=== PATIENT | female | born 1955 | race Caucasian/White ===

== ENCOUNTER → 2019-08-04 13:02 | Outpatient (CLI) | payer MEDICARE, SELFPAY ==
--- NOTE | ~2019-08-04 | CT_ITS ---
EXAMINATION: CT lumbar spine w con EXAM DATE: 08/04/2019 13:39 INDICATION: Chronic low back pain. TECHNIQUE: Spiral CT of the lumbar spine was performed following injection of 100 mL intravenous Omni paque 350 solution. Axial, coronal and sagittal images were reviewed. The dose-length product (DLP) for this examination was 913.00 mGy-cm. The exposure was tailored according to patient size (auto mA exposure control), and iterative reconstruction (ASIR) was used as additional dose reduction techn ique. Correlation is made to lumbar spine MRI 04/26/2016. FINDINGS: L4-5 interbody and posterior fusion along with laminectomy. No lucency surrounding the scre ws. There is mild to moderate disc disease L2-L3 and L3-4. No spondylolysis. Sacrum is unremarkable. No evidence of epidural fluid collection. Moderate abdominal aortic arterial sclerosis. Paraspinal so ft tissue is unremarkable. The vertebral bodies are aligned in the AP dimension. There are no areas of abnormal enhancement on the post contrast images. Level by level evaluation: T12-L1: There is a minimal diffuse disc bulge. Facet arthropathy: Minimal. Neural foraminal stenosis: No stenosis. Central canal stenosis: No stenosis. L1-L2: There is a mild diffuse disc bulge. Facet arthropathy: Mild. Neural foraminal stenosis: No stenosis. Central canal stenosis: No stenosis. L2-L3: There is a mild diffuse disc bulge. Facet arthropathy: Mild. Neural foraminal stenosis: Mild bilateral. Central canal stenosis: Minimal. L3-L4: There is a mild to moderate diffuse disc bulge. Facet arthropathy: Moderate. Neural foraminal stenosis: Moderate bilateral. Central canal stenosis: Mild to moderate. L4-L5: This level is fused. Facet arthropathy: None. Neural foraminal stenosis: No stenosis. Central canal stenosis: No stenosis. Posterior decompression. L5-S1: There is a mild diffuse disc bulge. Facet arthropathy: Moderate to severe left, moderate right. Neural foraminal stenosis: Mild to moderate bilateral, left more than right. Central canal stenosis: No stenosis. IMPRESSION: 1. Overall moderate lumbar spondylosis. Reviewed, dictated and finalized at location A. TEND ENGINEER
[2019-08-04 13:26] LABS: Blood Urea Nitrogen 19 mg/dL (8-26); Estimated Glomerular Filt Rate > 60
== END ==
PROVIDERS: PCP Physician Assistant; Visit Provider Physician Assistant
DX: M47.816 Spondylosis without myelopathy or radiculopathy, lumbar region (principal)
CPT/HCPCS: 72132; Q9967

== ENCOUNTER 2020-05-27 13:15 | Outpatient (CLI) | payer MEDICARE, SELFPAY ==
--- NOTE | ~2020-05-27 | MM_ITS ---
EXAMINATION: MM diagnostic tan BI w rocky HISTORY: Previous right nipple discharge. Current left nipple discharge. TECHNIQUE: Additional 3-D tomosynthesis images of the breasts were performed and synthetic 2-D images were generated. CAD analysis was submitted and interpreted. COMPARISON: Comparison to multiple prior studies sequentially, with oldest reviewed study dated 11/2014. BREAST PARENCHYMAL COMPOSITION: Breast composed of scattered areas of fibroglandular density FINDINGS: There are no suspicious masses, calcifications or architectural distortion in either breast to suggest malignancy. IMPRESSION: 1. No mammographic evidence for malignancy. Follow-up bilateral breast ultrasound recommended for com plete evaluation of nipple discharge. BI-RADS CATEGORY 0 - INCOMPLETE STUDY, NEED ADDITIONAL IMAGING EVALUATION. Reviewed, dictated and finalized at location A. WINDER IMPRESSION: 1. No mammographic evidence for malignancy. Follow-up bilateral breast ultrasou nd recommended for complete evaluation of nipple discharge. BI-RADS CATEGORY 0 - INCOMPLETE STUDY, NEED ADDITIONAL IMAGING EVALUATION.
--- NOTE | ~2020-05-27 | US_ITS ---
US breast BI complete 05/27/2020 14:56 Indication: Galactorrhea Procedure: High-resolution bilateral breast ultrasound Comparison: Mammogram dated 05/27/2020 Findings: Right breast is composed of normal heterogeneous echotexture without focal solid or cystic mass. In the left breast at 2:00, 3 cm from the nipple, there is an anechoic mass measuring 3 mm with subtle posterior acoustic shadowing. There is antiparallel configuration, likely due to superficial location. Impression: 1: Anechoic mass in the left breast at 2:00, 3 cm from the nipple, most likely a cyst, although there is posterior shadowing. BI-RADS CATEGORY 3-PROBABLY BENIGN FINDING RECOMMENDATION: Six-month follow-up targeted left breast ultrasound recommended. Reviewed, dictated and finalized at location A. SKINNING MACHINE FEEDER Impression: 1: Anechoic mass in the left breast at 2:00, 3 cm from the nipple, most likely a cyst, although there is posterior shadowing. BI-RADS CATEGORY 3-PROBABLY BENIGN FINDING RECOMMENDATION: Six-month follow-up targeted left breast ultrasound recommended .
== END 2020-05-27 13:16 | disposition home or self-care (01) ==
PROVIDERS: PCP Family Medicine; Visit Provider Family Medicine
DX: N64.3 Galactorrhea not associated with childbirth (principal); R92.8 Other abnormal and inconclusive findings on diagnostic imaging of breast
CPT/HCPCS: 76641; 77062; 77066; G0279

== ENCOUNTER 2020-08-30 09:18 | Outpatient (CLI) | payer MEDICARE, SELFPAY ==
--- NOTE | ~2020-08-30 | CT_ITS ---
EXAMINATION: CT lung screening DATE: 08/30/2020 09:45 INDICATION: F17.209 - Nicotine dependence, unspecified, with unspecified nicotine-induced disorders TECHNIQUE: Computed tomography (CT) of the chest was performed without intravenous contrast. Addition al 3D reconstructions utilizing coronal maximum intensity projection (MIP) were performed. Automated exposure control and iterative reconstruction technique were employed. The dose-length product was 18 6.71 mGy-cm. COMPARISON: None FINDINGS: Mild to moderate upper lobe predominant emphysema. 4 x 2 mm subpleural nodule in the right upper lobe . 1 mm left upper lobe nodule. No pleural effusion. Heart size is normal. Atherosclerotic coronary ar mack calcification. Aortic valve calcification. Thoracic aorta is normal in caliber. No pathologicall y enlarged thoracic lymphadenopathy. Diffuse hepatic steatosis. Mild thoracic dextroscoliosis with mi ld to moderate spondylosis. Chronic mild anterior wedging at T7 and T8. IMPRESSION: 1. Lung-RADS category 2: Benign appearance or behavior, <1% chance of malignancy. Continue annual scr eening with noncontrast low-dose chest CT in 12 months. Reviewed, dictated and finalized at location B. IMPRESSION: 1. Lung-RADS category 2: Benign appearance or behavior, <1% chance of malignanc y. Continue annual screening with noncontrast low-dose chest CT in 12 months.
== END 2020-08-30 09:19 | disposition home or self-care (01) ==
LOC: ANHIMG 09:26
PROVIDERS: PCP Family Medicine; Visit Provider Family Medicine
DX: Z12.2 Encounter for screening for malignant neoplasm of respiratory organs (principal); Z87.891 Personal history of nicotine dependence
CPT/HCPCS: 71271

== ENCOUNTER 2020-09-10 18:33 | Emergency (ER) | payer MEDICARE, SELFPAY ==
[2020-09-10] VITALS (10 sets, daily range): BP systolic 118–164; BP diastolic 57–132; PULSE 66–93; RESP 13–25; TEMP 36.1–36.6; O2SAT 96–100
--- NOTE | ~2020-09-10 | XR_ITS ---
EXAMINATION: XR chest 2V EXAM DATE: 09/10/2020 19:06 INDICATION: Left-sided chest pain, shortness of breath, syncope. History of hypertension and COPD. TECHNIQUE: Frontal and lateral projections of the chest obtained and reviewed. Comparison is made to prior examination from 12/12/2010. FINDINGS: There are cholecystectomy clips. The lungs are clear. There are no pleural effusions. T he cardiomediastinal silhouette is within normal limits. There is no pneumothorax suspected. Surgic al changes right acromioclavicular joint. There is no significant interval change. IMPRESSION: No acute cardiopulmonary findings. Reviewed, dictated and finalized at location A.
--- NOTE | 2020-09-10 18:39 | ECG_ITS ---
Measurements Intervals [place] Rate: 89 P: 60 MI: 134 QRS: 75 QRSD: 85 T: 54 QT: 362 QTc: 442 Interpretive Statements SINUS RHYTHM POSSIBLE LEFT ATRIAL ENLARGEMENT DELAYED PRECORDIAL R/S TRANSITION BASELINE WANDER- V3 BORDERLINE ECG Electronically Signed On 09-13-2020 10:27:39 CDT by Roc Humphrey D.O.
[2020-09-10 18:53] LABS: Basophils Percent Auto 0.5 % (0.2-1.2); Eosinophils Absolute Auto 0.1 K/mm3 (0-0.3); Eosinophils Percent Auto 1.3 % (0-4.4); Hemoglobin 13.1 g/dL (12.0-15.0); Immature Granulocyte Absolute 0.02 K/mm3 (0.00-0.031); Immature Granulocyte Percent A 0.3 % (0-0.5); Lymphocytes Absolute Auto 2.06 K/mm3 (0.9-3.2); Lymphocytes Percent Auto 27.5 % (18.3-44.2); Mean Corpuscular HGB Conc 33.6 g/dl (32-36); Mean Corpuscular Hemoglobin 30.3 pg (26-34); Mean Corpuscular Volume 90.1 fl (80-100); Mean Platelet Volume 10.4 fl (7.4-10.4); Monocytes Absolute Auto 0.5 K/mm3 (0.1-0.6); Monocytes Percent Auto 6.1 % (2.6-8.5); Neutrophils Absolute Auto 4.8 K/mm3 (1.3-6.7); Neutrophils Percent Auto 64.3 % (45.5-73.1); Platelet Count Result 236 k/mm3 (150-375); Red Blood Count 4.33 M/mm3 (4.2-5.4); Red Cell Distribution Width 13.1 % (11.5-14.5); White Blood Count 7.5 K/mm3 (4.5-10.0)
[2020-09-10] MEDS: ASPIRIN 81 MG CHEWABLE TABLET 324 MG PO (18:53)
[2020-09-10 19:02] LABS: Prothrombin Time 13.3 Seconds (11.1-14.7)
[2020-09-10 19:04] LABS: Partial Thromboplastin Time 30.7 SECONDS (22.3-36.8)
[2020-09-10 19:05] LABS: Anion Gap 7 mmol/L (8-16); Blood Urea Nitrogen 13 mg/dL (7-17); Calcium 9.1 mg/dL (8.4-10.2); Carbon Dioxide 30 mmol/L (22-30); Chloride 103 mmol/L (98-107); Estimated CRCL calculation 75 ml/min; Estimated Glomerular Filt Rate > 60; Glucose 107 mg/dL (65-105); Potassium 3.7 mmol/L (3.4-5.0); Sodium 140 mmol/L (137-145)
[2020-09-10 19:15] LABS: Troponin I < 0.012 ng/mL (0.000-0.034)
--- NOTE | 2020-09-10 20:53 | ED.CHESTPAIN ---
HPI - Chest Pain General Chief Complaint: Chest Pain Stated Complaint: cp Time Seen by Provider: 09/10/20 19:21 Source: patient Mode of arrival: ambulatory Limitations: no limitations History of Present Illness HPI narrative: Patient presents for evaluation of center chest pain that radiated to the left side beginning yesterday. Patient states it felt like a spasming sensation. Patient states that when she came to emergency department the pain stopped. Patient states he was recently diagnosed with emphysema and pulmonary nodules so her respiratory function is at her baseline. She denies any fever, chills, cough, syncope, abdominal pain, nausea, vomiting, diaphoresis or any other symptoms. Patient denies any speech deficits or neurological deficits or unilateral weakness. Patient denies any symptoms at this time. Patient states she stopped smoking 3 years ago. She reports having anxiety, depression, restless leg syndrome, chronic pain, and thyroid disorder. She denies ever had a heart attack or stroke. She denies close family history of MIs. Related Data Home Medications Medication Instructions Recorded Confirmed Cannabis BYMOUTH 11/26/19 08/04/20 Allergies Allergy/AdvReac Type Severity Reaction Status Date / Time adhesive tape Allergy Intermediate BLISTERS Verified 09/10/20 18:46 FROM SURG TAPE heparin Allergy Unknown rash Verified 09/10/20 18:46 Penicillins Allergy Unknown Rash Verified 09/10/20 18:46 Review of Systems Review of Systems: Narrative: CONSTITUTIONAL: Denies fever, chills, or sweats. EYES: Denies visual changes, redness, or discharge. ENT: Denies rhinorrhea, congestion, sore throat, or otalgia. CARDIOVASCULAR: Reports chest pain now resolved denies palpitations, or edema. RESPIRATORY: Denies cough or dyspnea. GASTROINTESTINAL: Denies abdominal pain, nausea, vomiting, or diarrhea. GENITOURINARY: Denies dysuria or hematuria. SKIN: Denies rash or itching. MUSCULOSKELETAL: Denies back pain, joint pain, or myalgia. NEUROLOGIC: Denies headache, numbness, dizziness, or weakness. PSYCHIATRIC: Denies anxiety or depression. ON LICENSE OF [facility] Past Medical History Medical History (Updated 09/10/20 @ 20:57 by Brennon Delacruz PA-C) Acute bronchitis Carpal tunnel syndrome on both sides Chills (without fever) Chronic anxiety Chronic depression Compression fracture of body of thoracic vertebra (08/30/20) anterior wedging of T7 and T8 on CT of the chest 08/20/2020 Coronary artery calcification seen on CT scan (08/30/20) Edema, peripheral Emphysematous COPD (08/30/20) mild to moderate upper lobe emphysema on CT 08/30/2020 Fatigue Fatty infiltration of liver (08/30/20) fatty liver noted on CT on 08/30/2020 Galactorrhea of left breast Hypersomnia Hypertension Shortness of breath Thyroid disease Tobacco use disorder, continuous Tremor Surgical History Surgical History H/O breast surgery H/O elbow surgery H/O knee surgery H/O neck surgery H/O shoulder surgery right x 2 H/O: hysterectomy History of cholecystectomy Family History Family History Mother Patient's mother is Family history of heart disease in male family member before age 55 Alcoholism Depression Father Family history of Parkinson's disease Family history of heart disease in male family member before age 55 Alcoholism Social History Social History Smoking status: Current every day smoker Tobacco type: e-cigarettes/vaping Alcohol intake: current Substance use: current Exam Narrative: Exam Narrative: GENERAL: Well-appearing, well-nourished, and in no acute distress. HEAD: Normocephalic, atraumatic. EYES: PERRLA and EOMI. ENT: Nares clear, no rhinorrhea or epistaxis. Mucous membranes moist. Oropharynx without tonsillar hypertrophy exudate or other lesions. Bi
[2020-09-10 21:42] LABS: Troponin I < 0.012 ng/mL (0.000-0.034)
== END 2020-09-10 22:15 | disposition home or self-care (01) ==
PROVIDERS: Emergency Provider Emergency Medicine; PCP Family Medicine
DX: R07.89 Other chest pain (principal); G25.81 Restless legs syndrome; E07.9 Disorder of thyroid, unspecified; G89.29 Other chronic pain; J43.9 Emphysema, unspecified; I70.90 Unspecified atherosclerosis; I10 Essential (primary) hypertension; Z87.891 Personal history of nicotine dependence; R94.31 Abnormal electrocardiogram [ECG] [EKG]
CPT/HCPCS: 36415; 71046; 80048; 84484; 85025; 85610; 85730; 93005; 99284; A9270

== ENCOUNTER 2020-09-17 08:00 | Outpatient (CLI) | payer MEDICARE, SELFPAY ==
--- NOTE | 2020-09-17 14:09 | P.PCNPFT_ITS ---
PFT Interpretation This is a pulmonary function test with pre and post-bronchodilator spirometry, plethysmography and diffusing capacity. The test was performed and results interpreted in accordance with the 2019 and 2005 ATS/ERS Task Force guidelines respectively using the Global Lung Function Initiative-2012 reference equations. Patient demonstrated good effort and c ooperation. Reproducibility criteria were met. The quality of the pre bronchodilator spirometry maneuver was Grade A and post bronchodilator spirometry maneuver was Grade A. Findings: Spirometry:The contour of the inspiratory and expiratory flow tracing are normal. The pre bronchodilator FVC is 3.23 L, 106% predicted. The pre bronchodilator FEV1 is 2.23 L, 94% predicted. The FEV1: FVC ratio was 69%. The post bronchodilator FVC is 3.21 L, representing 1% decrease. The post bronchodilator FEV1 is 2.27 L, representing a 2% increase. Plethysmography: The total lung capacity is 4.66 L, 92% predicted. The functional residual capacity is 2.31 L, 80% predicted. The residual volume is 1.29 L, 62% predicted. Diffusing capacity the absolute diffusion capacity is 13.8, 66% predicted. The diffusing capacity corrected for alveolar volume is 3.22, 74% predicted. Impression: The spirometry is normal without evidence of an obstructive abnormality. There is no significant improvement after inhaling a single dose of albuterol. There is an isolated decrease in residual volume of uncertain significance. The absolute diffusing capacity is mildly decreased and normalizes when corrected for alveolar volume. There are no prior studies for comparison PFT Procedure Performed PFT Procedure Performed Spirometry with Pre/Post Bronchodilator Plethysmography (Lung Vol) Diffusing Cap (DLCO)
--- NOTE | 2020-09-17 14:13 | WPDSIXMINUTE ---
Six Minute Walk This is a 6 minutes walk test. The test was performed and interpreted in accordance with the 2014 ERS/ATS task force guidelines. Findings: The patient's resting room air oxygen saturation measured by pulse oximetry was 96% and her heart rate was 79 bpm. Patient ambulated for 229 meters and oxygen saturation remained 94 to 95%. Heart rate at the end of the study was 104 bpm. There are no prior studies for comparison. Six Minute Walk Procedure Procedure Performed Pulmonary Stress Test (6 min walk)
== END 2020-09-17 08:01 | disposition home or self-care (01) ==
PROVIDERS: PCP Family Medicine; Visit Provider Family Medicine
DX: R06.02 Shortness of breath (principal)
CPT/HCPCS: 94060; 94726; 94729

== ENCOUNTER → 2020-09-27 08:09 | Outpatient (CLI) | payer MEDICARE, SELFPAY ==
--- NOTE | ~2020-09-27 | MR_ITS ---
EXAMINATION: MR shoulder LT wo con DATE: 09/27/2020 09:11 INDICATION: Left shoulder pain. TECHNIQUE: Magnetic resonance imaging (MRI) of the left shoulder was performed without intravenous co ntrast. Sequences included axial PD-weighted FS FSE, coronal oblique PD-weighted FS FSE and T2-weight ed FS FSE, and sagittal oblique T2-weighted FS FSE and T1-weighted FSE. COMPARISON: Left shoulder radiographs 08/04/2020 FINDINGS: Coracoacromial arch: The acromion undersurface is curved in morphology (type II). There is moderate acromioclavicular join t osteoarthritis including inferiorly directed osteophytes. There is a physiologic volume of fluid in subacromial/subdeltoid bursa. Rotator cuff: There is moderate supraspinatus tendinopathy and mild infraspinatus tendinopathy. Teres minor tendon is normal. Subscapularis tendon is normal. There is no asymmetric fatty atrophy of the rotator cuff m uscle bellies. Biceps tendon and glenoid labrum: Biceps tendon is in bicipital groove. Intra-articular biceps tendon is normal. The glenoid labrum is intact. Fluid: There is no glenohumeral joint effusion. Bones/cartilage: Humeral head cartilage is normal. Glenoid cartilage is normal. IMPRESSION: 1. Moderate rotator cuff tendinopathy. No tear. 2. Moderate acromioclavicular joint osteoarthritis. Reviewed, dictated and finalized at location A.
== END ==
PROVIDERS: Visit Provider Orthopaedic Surgery
DX: M25.512 Pain in left shoulder (principal); M75.82 Other shoulder lesions, left shoulder; M19.012 Primary osteoarthritis, left shoulder
CPT/HCPCS: 73221

== ENCOUNTER 2020-10-06 09:16 | Outpatient (CLI) | payer MEDICARE, SELFPAY ==
--- NOTE | ~2020-10-06 | DEXA_ITS ---
Bone Density Report Name: Padmini Mendiola Age: 65 Sex: Female Ethnicity: White Date of : 1955 Indication: postmenopausal; hysterectomy; Referring Provider: Rishi Cuevas Study: Bone densitometry was performed. Exam Date: October 06, 2020 Accession number: [id number] Bone Density: Region BMD T-score Z-score Classification AP Spine (L1, L2) 1.102 1.1 2.8 Normal Femoral Neck (Left) 0.774 -0.7 0.8 Normal Total Hip (Left) 0.952 0.1 1.3 Normal Total Hip Bilateral Avg 0.924 -0.2 1.1 Normal Femoral Neck (Right) 0.765 -0.8 0.8 Normal Total Hip (Right) 0.895 -0.4 0.8 Normal World Health Organization criteria for BMD impression classify patients as: Normal (T-score at or above -1.0), Osteopenia (T-score between -1.0 and -2.5), or Osteoporosis (T-score at or below -2.5). 10-year Fracture Risk: FRAX not reported because: All T-scores for Spine Total, Hip Total, Femoral Neck at or above -1.0 Previous Exams: Region Exam Age BMD T-score BMD Change BMD Change Date g/cm2 vs Baseline vs Previous Total Hip(Left) 10/06/2020 65 0.952 0.1 -0.036(-3.6%)# -0.036(-3.6%)# 04/28/2008 52 0.987 0.4 Total Hip(Right) 10/06/2020 65 0.895 -0.4 -0.034(-3.7%)# -0.034(-3.7%)# 04/28/2008 52 0.930 -0.1 *Denotes significance at 95% confidence level, LSC for Total Hip = 0.027 g/cm2 Clinical Information Provided by Patient: Has 3 or more alcoholic drinks per day Has the following medical conditions: Hysterectomy Patient maximum height was 64 Menopause Age: 32 No regular weight bearing exercise Drinks caffeinated beverages Onset of menses at age 13 Number of children 2 Impression: The patient has normal bone mass. The patient has risk factors, including: excessive alcohol use. No significant bone loss was observed. Discussion: BONE DENSITY IS ABOVE THE MINIMUM DESIRABLE LEVEL AT ALL SKELETAL SITES TESTED. This patient?s bone mineral density is above the minimum desirable level (T-score -1.0 or better) at all sites measured. The patient should follow a healthful lifestyle (good nutrition with adequate calcium and vitamin D, and appropriate weight-bearing exercise). Follow-Up: Consider repeating this study in 5 years or sooner if there is some new clinical indication. Reported by: [facility] on 10/06/2020 9:46:00 AM. Reviewed, dictated and finalized at location AAnnette RODRIGES
== END 2020-10-06 09:17 | disposition home or self-care (01) ==
LOC: ANHIMG 09:20
PROVIDERS: PCP Family Medicine; Visit Provider Student in an Organized Health Care Education/Training Program
DX: M81.0 Age-related osteoporosis without current pathological fracture (principal); Z78.0 Asymptomatic menopausal state
CPT/HCPCS: 77080

== ENCOUNTER 2021-04-11 15:09 | Outpatient (CLI) | payer MEDICARE, SELFPAY ==
--- NOTE | ~2021-04-11 | MR_ITS ---
EXAMINATION: MR cervical spine wo con DATE: 04/11/2021 16:36 INDICATION: Neck pain. TECHNIQUE: Magnetic resonance imaging (MRI) of the cervical spine was performed without intravenous c ontrast. Sequences included sagittal T2-weighted FSE, sagittal T2-weighted FS FSE, sagittal T1-weight ed FSE, axial MERGE, and axial T2-weighted FSE. COMPARISON: Cervical spine MRI 07/09/2019 FINDINGS: There is 11 degrees levoscoliosis of cervicothoracic spine. Vertebral body heights are norm al. There is mildly decreased disc height at C5-C6 and C6-C7. The spinal cord signal intensity is nor mal. The following disc levels are specifically discussed: C2-C3: The disc does not extend beyond the endplate margin. There is mild right uncovertebral joint o steoarthritis. There is severe right and mild left facet joint osteoarthritis. There is mild right ne ural foraminal stenosis. There is no central canal stenosis. C3-C4: The disc does not extend beyond the endplate margin. There is mild left uncovertebral joint os teoarthritis. There is severe right facet joint osteoarthritis. There is ankylosis of left facet join t with severe hypertrophy. There is mild right and moderate left neural foraminal stenosis. There is no central canal stenosis. C4-C5: The disc does not extend beyond the endplate margin. There is no uncovertebral joint osteoarth ritis. There is severe right and mild left facet joint osteoarthritis. There is mild right neural for aminal stenosis. There is no central canal stenosis. C5-C6: The disc is bulging. There is mild bilateral uncovertebral joint osteoarthritis. There is mode rate bilateral facet joint osteoarthritis. There is mild bilateral neural foraminal stenosis. There i s mild central canal stenosis. C6-C7: The disc is bulging. There is severe bilateral uncovertebral joint osteoarthritis. There is se sheela right and mild left facet joint osteoarthritis. There is mild right and moderate left neural for aminal stenosis. There is mild central canal stenosis. C7-T1: The disc does not extend beyond the endplate margin. There is no uncovertebral joint osteoarth ritis. There is severe bilateral facet joint osteoarthritis. There is mild right neural foraminal luz marina nosis. There is no central canal stenosis. IMPRESSION: 1. Moderate cervical spondylosis, stable from 07/09/2019. Reviewed, dictated and finalized at location A.
--- NOTE | ~2021-04-11 | MR_ITS ---
EXAMINATION: MR brain/brain stem wo con DATE: 04/11/2021 16:36 INDICATION: Headache, unspecified. TECHNIQUE: Magnetic resonance imaging (MRI) of the brain and brainstem was performed without intraven ous contrast. Sequences included sagittal and axial T1-weighted FSE, axial diffusion-weighted FS EPI, axial T2*-weighted GRE, axial T2-weighted FLAIR Propeller, and axial T2-weighted Propeller. Apparent diffusion coefficient (ADC) maps were created. COMPARISON: Brain MRI 07/09/2019 FINDINGS: There are scattered areas of nonspecific increased T2-weighted signal intensity in the cere bral and cerebellar white matter and yue. There is no intracranial hemorrhage, acute infarction, or abnormal intracranial mass lesion. The ventricles are normal in size. The paranasal sinuses are clear . The orbits are normal. The mastoid air cells are normal. IMPRESSION: 1. Stable moderate nonspecific cerebral and cerebellar white matter disease and pontine disease, whic h likely represents chronic small vessel ischemic disease. Reviewed, dictated and finalized at location A. IMPRESSION: 1. Stable moderate nonspecific cerebral and cerebellar white matter disease and pontine disease, which likely represents chronic small vessel ischemic disease .
== END 2021-04-11 15:10 | disposition home or self-care (01) ==
PROVIDERS: PCP Family Medicine; Visit Provider Family Medicine
DX: M54.2 Cervicalgia (principal); R51.9 Headache, unspecified; H53.9 Unspecified visual disturbance; M47.812 Spondylosis without myelopathy or radiculopathy, cervical region; R90.82 White matter disease, unspecified
CPT/HCPCS: 70551; 72141

== ENCOUNTER → 2021-06-22 07:37 | Outpatient (CLI) | payer MEDICARE, SELFPAY ==
[2021-06-23 14:36] LABS: SARS-CoV-2 RNA PCR Negative
== END ==
PROVIDERS: PCP Family Medicine; Visit Provider Family Medicine
DX: Z20.822 Contact with and (suspected) exposure to COVID-19 (principal)
CPT/HCPCS: C9803; U0003; U0005

== ENCOUNTER 2021-08-15 13:15 | Outpatient (CLI) | payer MEDICARE, SELFPAY ==
--- NOTE | ~2021-08-15 | MMUS_ITS ---
EXAMINATION: MM diagnostic tan BI w rocky, US breast LT limited HISTORY: Overdue follow-up for probably benign left breast mass TECHNIQUE: Craniocaudal, mediolateral, and mediolateral oblique 3-D tomosynthesis images of the breas ts were performed and synthetic 2-D images were generated. CAD analysis was submitted and interpreted . High resolution limited left breast ultrasound was performed. COMPARISON: 05/27/2020, 07/01/2019, 09/17/2018, 08/01/2017 BREAST PARENCHYMAL COMPOSITION: There are scattered areas of fibroglandular density. FINDINGS: MAMMOGRAPHIC FINDINGS: There is no evidence of suspicious mass, calcification, or architectural distortion in either maligna ncy. There has been no suspicious interval change. ULTRASOUND: The previously described sonographically detected left breast mass is no longer identified. IMPRESSION: 1. No mammographic or sonographic evidence of malignancy. 2. Recommend routine screening mammography in one year. BI-RADS Category 1: Negative Reviewed, dictated and finalized at location A. KILN FEEDER IMPRESSION: 1. No mammographic or sonographic evidence of malignancy. 2. Recommend routine screening mammography in one year. BI-RADS Category 1: Negative
== END 2021-08-15 13:16 | disposition home or self-care (01) ==
LOC: ANHIMG 13:20
PROVIDERS: PCP Family Medicine; Visit Provider Obstetrics & Gynecology
DX: R92.8 Other abnormal and inconclusive findings on diagnostic imaging of breast (principal)
CPT/HCPCS: 76642; 77062; 77066; G0279

== ENCOUNTER 2022-05-18 10:25 | Outpatient (CLI) | payer MEDICARE, SELFPAY ==
--- NOTE | ~2022-05-18 | MR_ITS ---
EXAMINATION: MR lumbar spine wo con DATE: 05/18/2022 10:57 INDICATION: Lumbosacral radiculopathy. TECHNIQUE: Magnetic resonance imaging (MRI) of the lumbar spine was performed without intravenous con trast. COMPARISON: Lumbar spine MRI 04/26/2016 FINDINGS: There is 3 degrees dextrocurvature of lumbar spine. There are changes of anterior and poste rior fusion procedures at L4-L5 with interbody devices and pedicle screws. Vertebral body heights are normal. There is mildly decreased disc height at L2-L3 and L3-L4. The distal spinal cord signal inte nsity is normal. The conus medullaris is at L1. There is a 1.6 cm cyst in left kidney. The following disc levels are specifically discussed: L1-L2: The disc does not extend beyond the endplate margin. There is mild right and moderate left fac et joint osteoarthritis. There is no neural foraminal stenosis. There is no central canal stenosis. L2-L3: The disc is bulging. There is mild right and moderate left facet joint osteoarthritis. There i s mild bilateral neural foraminal stenosis. There is mild central canal stenosis. L3-L4: The disc is bulging. There is severe bilateral facet joint osteoarthritis. There is moderate b ilateral neural foraminal stenosis. There is mild central canal stenosis. L4-L5: There is no facet joint hypertrophy. There is no neural foraminal stenosis. There is no centra l canal stenosis. There is posterior decompression. L5-S1: The disc is bulging. There is severe bilateral facet joint osteoarthritis. There is mild bilat eral neural foraminal stenosis. There is mild central canal stenosis. IMPRESSION: 1. Moderate lumbar spondylosis with slight interval worsening at L3-L4. 2. Anterior and posterior fusion procedures at L4-L5. Reviewed, dictated and finalized at location A. BAKER
== END 2022-05-18 10:26 ==
LOC: MICIMG 10:28
PROVIDERS: PCP Family Medicine
DX: M54.17 Radiculopathy, lumbosacral region (principal); M43.06 Spondylolysis, lumbar region; Z98.1 Arthrodesis status
CPT/HCPCS: 72148

== ENCOUNTER 2022-06-30 12:49 | Outpatient (CLI) | payer MEDICARE, SELFPAY ==
--- NOTE | ~2022-06-30 | XR_ITS ---
XR hand RT min 3V DATE: 06/30/2022 13:01 INDICATION: Right hand pain TECHNIQUE: 3 views COMPARISON: None FINDINGS: There is osteoarthritis involving multiple joints including particularly the first carpomet acarpal joint, interphalangeal joint of the first digit and distal interphalangeal joint of the third digit. Lesser osteoarthritic changes are noted at the remaining interphalangeal joints. There is los s of joint space is most metacarpophalangeal joints as well. Benign approximately 4 mm cyst of navicular bone. No fracture or dislocation, periosteal reaction or bone destruction or erosive change is noted. No ch ondrocalcinosis. IMPRESSION: Polyarticular osteoarthritis Reviewed, dictated and finalized at location A. ROOM PLASTIC CARD GRADER
== END 2022-06-30 12:50 ==
LOC: MICIMG 12:50
PROVIDERS: PCP Family Medicine; Visit Provider Family Medicine
DX: M19.041 Primary osteoarthritis, right hand (principal)
CPT/HCPCS: 73130

== ENCOUNTER 2022-07-20 13:46 | Outpatient (CLI) | payer MEDICARE, SELFPAY ==
--- NOTE | ~2022-07-20 | US_ITS ---
EXAMINATION: US art doppler w press LE BI DATE: 07/20/2022 15:02 INDICATION: Peripheral vascular disease TECHNIQUE: Segmental pressures and plethysmographic and Doppler waveforms of the brachial and lower e xtremity arteries were obtained. COMPARISON: None. FINDINGS: Right and left brachial artery pressures of 129 mm Hg and 133 mm Hg, respectively, are concordant (no rmal difference <= 30 mmHg). The right and left high-thigh pressure indices are 0.99 and 0.86, respec tively (normal > 1.2). The right ankle-brachial index (ESTELITA) is 0.94 (normal >= 0.9-1). The right great toe-brachial index (T BI) is 0.56 (normal >= 0.6-0.8). The right lower extremity segmental pressure gradients are normal (n ormal gradients <= 20-30 mmHg between adjacent levels on the same leg or the same levels on the two l egs). Arterial waveforms are biphasic with brisk systolic upstrokes at the right common femoral, supe rficial femoral, popliteal, posterior tibial and dorsalis pedis arteries. The left ESTELITA is 0.89. The left TBI is 0.60. The left lower extremity segmental pressure gradients are normal. Arterial waveforms are biphasic with brisk systolic upstrokes at the left common femoral, gardner perficial femoral, popliteal, posterior tibial and dorsalis pedis arteries. IMPRESSION: 1. Arterial occlusive disease to the bilateral lower limbs with borderline to mildly decreased bilate ral ABIs and TBIs Reviewed, dictated and finalized at location A. TENANCE SPECIALIST IMPRESSION: 1. Arterial occlusive disease to the bilateral lower limbs with borderline to m ildly decreased bilateral ABIs and TBIs
== END 2022-07-20 13:47 | disposition home or self-care (01) ==
PROVIDERS: PCP Family Medicine; Visit Provider Family Medicine
DX: I73.9 Peripheral vascular disease, unspecified (principal); R23.0 Cyanosis
CPT/HCPCS: 93923

== ENCOUNTER 2022-07-26 08:14 | Outpatient (CLI) | payer MEDICARE, SELFPAY ==
--- NOTE | ~2022-07-26 | US_ITS ---
EXAMINATION: US art doppler w press UE BI DATE: 07/26/2022 10:25 INDICATION: Peripheral arterial disease. Cyanosis of right thumb. TECHNIQUE: Segmental pressures and plethysmographic and Doppler waveforms of the upper extremity omar errol were obtained. COMPARISON: None. FINDINGS: Right and left brachial artery pressures of 147 mm Hg and 154 mm Hg, respectively, are concordant (no rmal difference <= 30 mmHg). The right finger:brachial systolic pressure ratio is 0.77 (normal > 0.8) . The arterial pressure index is 1.10 in right wrist. Arterial Doppler waveforms demonstrate normal u pstroke (normal upstroke < 0.2 s). The left finger:brachial systolic pressure ratio is 0.86. The arterial pressure index is 0.99 in left wrist. Arterial Doppler waveforms demonstrate normal upstroke. IMPRESSION: 1. Mildly decreased right finger:brachial systolic pressure ratio, consistent with arterial occlusive disease. Reviewed, dictated and finalized at location A. ANICAL PROJECT ENGINEER IMPRESSION: 1. Mildly decreased right finger:brachial systolic pressure ratio, consistent w ith arterial occlusive disease.
== END 2022-07-26 08:15 | disposition home or self-care (01) ==
PROVIDERS: PCP Family Medicine; Visit Provider Family Medicine
DX: R23.0 Cyanosis (principal); I73.9 Peripheral vascular disease, unspecified
CPT/HCPCS: 93923

== ENCOUNTER 2023-01-25 20:02 | Emergency (ER) | payer MEDICARE, SELFPAY ==
[2023-01-25] VITALS (7 sets, daily range): BP systolic 103–152; BP diastolic 59–76; PULSE 79–92; RESP 15–26; TEMP 36.4; O2SAT 91–98
--- NOTE | ~2023-01-25 | XR_ITS ---
EXAMINATION: XR chest 2V Exam Date/Time: 01/25/2023 20:35 CDT HISTORY: chest pain Comparison: 09/10/2020. RESULT: Lines, tubes, and devices: Cholecystectomy clips. Lungs and pleura: Mild diffuse reticular opacities. No focal consolidation, pneumothorax, or effusio n. Cardiomediastinal silhouette: Stable. Other: No acute osseous or upper abdominal finding. IMPRESSION: Mild interstitial edema. Reviewed, dictated and finalized at location K. IMPRESSION: Mild interstitial edema.
--- NOTE | 2023-01-25 20:03 | ECG_ITS ---
Measurements Intervals [place] Rate: 84 P: 10 AK: 145 QRS: 85 QRSD: 101 T: 13 QT: 377 QTc: 446 Interpretive Statements SINUS RHYTHM POOR R WAVE PROGRESSION COMPARED TO ECG 09/10/2020 18:40:47 NO SIGNIFICANT CHANGES Electronically Signed On 01-26-2023 8:54:10 CDT by Zully Iraheta M.D.
[2023-01-25 20:19] LABS: Basophils Absolute Auto 0.1 K/mm3 (0.0-0.1); Basophils Percent Auto 1.2 % (0.2-1.2); Eosinophils Absolute Auto 0.2 K/mm3 (0-0.3); Eosinophils Percent Auto 2.9 % (0-4.4); Hematocrit 43.2 % (37.0-47.0); Hemoglobin 14.4 g/dL (12.0-15.0); Immature Granulocyte Absolute 0.08 K/mm3 (0.00-0.031); Immature Granulocyte Percent A 1.1 % (0-0.5); Lymphocytes Absolute Auto 2.26 K/mm3 (0.9-3.2); Lymphocytes Percent Auto 29.9 % (18.3-44.2); Mean Corpuscular HGB Conc 33.3 g/dl (32-36); Mean Corpuscular Hemoglobin 31.1 pg (26-34); Mean Corpuscular Volume 93.3 fl (80-100); Mean Platelet Volume 10.4 fl (7.4-10.4); Monocytes Absolute Auto 0.7 K/mm3 (0.1-0.6); Monocytes Percent Auto 8.9 % (2.6-8.5); Neutrophils Absolute Auto 4.2 K/mm3 (1.3-6.7); Platelet Count Result 242 k/mm3 (150-375); Red Blood Count 4.63 M/mm3 (4.2-5.4); Red Cell Distribution Width 12.2 % (11.5-14.5); White Blood Count 7.6 K/mm3 (4.5-10.0)
[2023-01-25 20:30] LABS: Alanine Aminotransferase 61 U/L (6-35); Albumin Level 4.6 g/dL (3.5-5.1); Alkaline Phosphatase 61 U/L (38-126); Anion Gap 8 mmol/L (8-16); Aspartate Amino Transferase 45 U/L (14-36); Bilirubin,Total 0.3 mg/dL (0.2-1.3); Blood Urea Nitrogen 14 mg/dL (7-17); Calcium 9.3 mg/dL (8.4-10.2); Carbon Dioxide 26 mmol/L (22-30); Chloride 100 mmol/L (98-107); Estimated Glomerular Filt Rate > 60; Glucose 101 mg/dL (65-110); INR 0.9; Lipase 211 U/L (23-300); Potassium 4.2 mmol/L (3.4-5.0); Prothrombin Time 12.9 Seconds (11.1-14.7); Sodium 134 mmol/L (137-145)
[2023-01-25 20:31] LABS: Partial Thromboplastin Time 31.2 SECONDS (22.3-36.8)
[2023-01-25 20:41] LABS: Troponin I < 0.012 ng/mL (0.000-0.034)
--- NOTE | 2023-01-25 22:34 | ED.BACK ---
HPI - Back Pain/Injury General Chief Complaint: Chest Pain Stated Complaint: SOB-chest pain Time Seen by Provider: 01/25/23 22:07 History of Present Illness HPI Narrative: Patient is a 67-year-old female with a history of hypertension, hypothyroidism, anxiety, chronic pain presenting with upper back pain. Patient states that for the last 3 days she has had left-sided neck pain that radiates just above her left shoulder blade. States that she has seen a chiropractor as well as her PCP. States that her PCP prescribed pain medications which has not really helped much. States that she would just like an injection to help with the pain. She denies chest pain. States that she has been a bit short of breath and seems to retaining water but then she tells me that she has not been compliant with her Lasix for some time now. She denies numbness or weakness, lightheadedness, abdominal pain, nausea or vomiting, leg swelling. Related Data Allergies Allergy/AdvReac Type Severity Reaction Status Date / Time adhesive tape Allergy Intermediate BLISTERS Verified 01/09/23 11:26 FROM SURG TAPE heparin Allergy Unknown rash Verified 01/09/23 11:26 Penicillins Allergy Unknown Rash Verified 01/09/23 11:26 Review of Systems Review of Systems: All systems reviewed & are unremarkable except as noted in HPI and below PMFSH Past Medical History Medical History Acute bronchitis ADHD (attention deficit hyperactivity disorder), inattentive type Arthritis of carpometacarpal (CMC) joint of right thumb At high risk for falls (~06/2021) BMI 30.0-30.9,adult BMI 31.0-31.9,adult BMI 32.0-32.9,adult BMI 33.0-33.9,adult Carpal tunnel syndrome on both sides Cellulitis Chigger bites (~10/12/20) Chills (without fever) Chronic anxiety Chronic depression Chronic thoracic back pain Claudication of both lower extremities (~07/13/22) Colon cancer screening Compression fracture of body of thoracic vertebra (08/30/20) anterior wedging of T7 and T8 on CT of the chest 08/20/2020 Contact dermatitis and eczema due to plant Coronary artery calcification seen on CT scan (08/30/20) COVID-19 (06/20/21) PCR test was negative but home test was positive 06/22/2021 COVID-19 long hauler manifesting chronic fatigue (~06/2021) Degenerative arthritis of knee, bilateral Dermatitis Diarrhea Edema, peripheral 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 Galactorrhea of left breast Headache, worsening (~04/11/21) MRI of the brain 04/11/2021 with chronic changes. MRI of the cervical spine with chronic moderate degenerative changes. MRI of the brain and C-spine on 12/21/2022 with chronic nonspecific changes of the brain and moderate spondylosis with moderate to severe spinal stenosis at C6-C7 with moderate to severe left neural foraminal stenosis at C6-C7. Herpes zoster dermatitis (09/25/20) recurrent zoster left T7 dermatome Hypersomnia Hypertension Obesity (BMI 30.0-34.9) Pain in right hand (~06/08/22) pain in right thumb with shoveling Approximate 06/08/2022. Polyarticular arthritis right hand on x-ray 06/30/2022. EMG and nerve conduction study upper extremities 07/31/2022 with chronic right C5-C6 radiculopathy and bilateral carpal tunnel syndrome. Peripheral arterial disease (~07/20/22) arterial Doppler study of The lower extremities on 07/20/2022 revealed borderline to mild occlusive arterial disease in the lower extremities with ESTELITA 0.94 and TBI 0.56 in the right lower extremity and ESTELITA of 0.89 and TBI 0.6 in the left lower extremity. arterial Doppler of the upper extremities 07/26/2022 reveals slightly decreased flow in the right hand with ind
[2023-01-25 23:10] LABS: Troponin I < 0.012 ng/mL (0.000-0.034)
[2023-01-25] MEDS: HYDROmorphone HCL INJ (*CRX) 1 MG/ML SYR 0.5 MG IV PUSH (23:19)
[2023-01-25] MEDS: KETOROLAC 30 MG/ML VIAL (*BKC) IV PUSH (23:21)
[2023-01-25] MEDS: SODIUM CHLORIDE 0.9% IV 1,000 ML 999 ML IV CONT (23:22)
[2023-01-25] MEDS: FUROSEMIDE INJ 40 MG/4 ML VIAL 20 MG IV PUSH (23:24)
[2023-01-25] MEDS: LORazepam INJ (*CRX) 2 MG/ML VIAL 1 MG IV PUSH (23:31)
[2023-01-26 00:17] VITALS: O2SAT 97
[2023-01-26 00:38] VITALS: PULSE 79; RESP 15; O2SAT 95
[2023-01-26 01:16] VITALS: BP 133/68; PULSE 82; RESP 15; O2SAT 93
[2023-01-26 02:49] LABS: Troponin I < 0.012 ng/mL (0.000-0.034)
[2023-01-26 03:35] VITALS: BP 106/54; PULSE 86; RESP 15; O2SAT 98
== END 2023-01-26 05:13 | disposition home or self-care (01) ==
PROVIDERS: Emergency Provider Emergency Medicine; PCP Family Medicine
DX: M54.6 Pain in thoracic spine (principal); M62.830 Muscle spasm of back; R06.02 Shortness of breath; T50.1X6A Underdosing of loop [high-ceiling] diuretics, initial encounter; J43.9 Emphysema, unspecified; I10 Essential (primary) hypertension; I73.9 Peripheral vascular disease, unspecified; E03.9 Hypothyroidism, unspecified; G93.32 Myalgic encephalomyelitis/chronic fatigue syndrome; U09.9 Post COVID-19 condition, unspecified; G89.29 Other chronic pain; G62.9 Polyneuropathy, unspecified; M18.9 Osteoarthritis of first carpometacarpal joint, unspecified; M17.0 Bilateral primary osteoarthritis of knee; F90.0 Attention-deficit hyperactivity disorder, predominantly inattentive type; F32.A Depression, unspecified; F41.9 Anxiety disorder, unspecified; Z87.891 Personal history of nicotine dependence; Z90.710 Acquired absence of both cervix and uterus; Z90.49 Acquired absence of other specified parts of digestive tract; R94.31 Abnormal electrocardiogram [ECG] [EKG]; J81.1 Chronic pulmonary edema
CPT/HCPCS: 36415; 71046; 80053; 83690; 84484; 85025; 85610; 85730; 93005; 96361; 96374; 96375; 99284; J1170; J1885; J1940; J2060; J7030

== ENCOUNTER 2023-02-15 10:44 | Outpatient (CLI) | payer MEDICARE, SELFPAY ==
--- NOTE | ~2023-02-15 | US_ITS ---
EXAMINATION: US carotid duplex BI DATE: 02/15/2023 11:55 INDICATION: Unspecified visual disturbance TECHNIQUE: Grayscale, color Doppler, and pulsed Doppler images of the cervical carotid arteries were obtained. The degree of vessel stenosis is placed in one of the following categories: normal, <50%, 5 0-69%, >=70% but less than near-occlusion, near-occlusion, or total occlusion. Note that percent sten osis relative to normal distal artery lumen diameter is indirectly measured from velocity measurement s as described by Keith, et al. Radiology 2003; 229:340-346. COMPARISON: None. FINDINGS: RIGHT: The right common carotid artery (CCA) peak systolic velocity (PSV) is 76 cm/s. The right internal car otid artery (ICA) PSV is 105 cm/s. The right ICA end-diastolic velocity (EDV) is 26 cm/s. The right I CA/CCA PSV ratio is 1.4. Grayscale and color Doppler images yield an estimate of <50% diameter reduct ion from plaque in the ICA. The external carotid artery (ECA) PSV is 84 cm/s. There is antegrade flow in the right vertebral artery. LEFT: The left CCA PSV is 66 cm/s. The left ICA PSV is 64 cm/s. The left ICA EDV is 15 cm/s. The left ICA/C CA PSV ratio is 1.0. Grayscale and color Doppler images yield an estimate of <50% diameter reduction from plaque in the ICA. The ECA PSV is 70 cm/s. There is antegrade flow in the left vertebral artery. IMPRESSION: 1. <50% stenosis in the right internal carotid artery. 2. <50% stenosis in the left internal carotid artery. Reviewed, dictated and finalized at location A.
== END 2023-02-15 10:45 | disposition home or self-care (01) ==
PROVIDERS: PCP Family Medicine; Visit Provider Family Medicine
DX: I65.23 Occlusion and stenosis of bilateral carotid arteries (principal)
CPT/HCPCS: 93880

== ENCOUNTER 2023-05-21 06:59 | Outpatient (CLI) | payer MEDICARE, SELFPAY ==
[2023-05-21 09:26] LABS: Anion Gap 12 mmol/L (8-16); Blood Urea Nitrogen 15 mg/dL (7-17); Calcium 9.7 mg/dL (8.4-10.2); Carbon Dioxide 27 mmol/L (22-30); Chloride 98 mmol/L (98-107); Estimated Glomerular Filt Rate > 60; Glucose 124 mg/dL (65-110); Sodium 137 mmol/L (137-145)
[2023-05-21 09:29] LABS: INR 1.1; Prothrombin Time 14.4 Seconds (11.1-14.7)
[2023-05-21 09:30] LABS: Partial Thromboplastin Time 36.4 SECONDS (22.3-36.8)
== END 2023-05-21 07:00 | disposition home or self-care (01) ==
LOC: ANHSURGERY 07:04
PROVIDERS: Anesthesiology; PCP Family Medicine; Visit Provider Plastic Surgery
DX: K76.0 Fatty (change of) liver, not elsewhere classified (principal); Z79.899 Other long term (current) drug therapy
CPT/HCPCS: 36415; 80048; 85610; 85730

== ENCOUNTER 2023-05-25 00:34 | Day surgery (SDC) | payer MEDICARE, SELFPAY ==
--- NOTE | 2023-05-17 13:41 | PC.NURSE ---
PRE-OP INSTRUCTIONS, PLEASE READ CAREFULLY Report to the Outpatient Waiting Room, entrance under the green pavilion located off [facility], at time _1100__ on date _05/25/23_. Planned Procedure Time: _1 PM_. Time changes happen often and if your time is changed the preop area will call you the afternoon before. - You and your visitor will be asked to self-screen and do not enter if you have any COVID symptoms. - A mask is optional within the hospital at this time. - No food/fluid from midnight until time of surgery Take the following medications with a SIP of water the morning of surgery: _ALPRAZOLAM, AMLODIPINE, NASAL SPRAY, & PAIN PILL IF NEEDED_ DO NOT STOP ANY OF YOUR OTHER PRESCRIPTION MEDICATIONS PRIOR TO SURGERY ?EXCEPT THE FOLLOWING Medications to discontinue per physician NONE____, Date to take last dose Please no make-up, nail guinean, hairspray, perfume, deodorant, or body powder the day of surgery. No jewelry (including any body piercings) or valuables the day of surgery, leave them at home. Please take a shower or bath the night before, or the morning of, surgery with an antibacterial soap. Wear comfortable, loose fitting clothing. - Jewelry must be removed prior to entering the operating room. Rings and piercings that are not removed may be cut off. - The hospital will not accept responsibility for valuables. - Please leave all valuables, including medications, at home the day of surgery. If you are going home after surgery, a licensed driver's license reviewing officer must drive you home. - NO public transportation without another adult if you receive anesthesia. - We recommend that an adult stay with you for 24 hours following discharge. - We also recommend that you do not drive, make important decision, drink alcoholic beverages, or take any drugs that were not prescribed by your health care provider for at least 24 hours after your discharge time. Follow any additional instructions given to you from your surgeon. If you or anyone in your household have experienced Covid symptoms in the past week, please notify your surgeon or the nurse liaison at the phone number below for possible testing. Telephone instructions given to _PATIENT_and asked if any additional questions and then verbalized understanding. Patient advised to call surgeon office or pre surgery nurse liaison [phone] if any additional questions.
[2023-05-17 13:47] VITALS: BMI 34.2
--- NOTE | 2023-05-25 09:32 | PM.HPGS ---
History of Present Illness History of Present Illness Chief complaint: left carpal tunnel syndrome Narrative: Patient seen and examined in pre-operative holding area. No interval change in medical history or symptoms. Patient recalls previous discussion of benefits and alternatives to procedure. Continues to desire to proceed with left ectr possible open. Reviewed procedure, post-op expectations and risks including but not limited to bleeding, infection, injury to tendon/nerve/vessel, decreased hand function, stiffness, RSD, no change or worsening of symptoms. I discussed the possible use of assistants and their participation in the case. Patient stated understanding and signed the consent form wishing to proceed. Review of Systems Review of Systems: All systems reviewed & are unremarkable except as noted in HPI and below PMFSH Past Medical History Medical History (Updated 04/11/23 @ 14:35 by Umesh Meier MD) Acute bronchitis ADHD (attention deficit hyperactivity disorder), inattentive type Arthritis of carpometacarpal (CMC) joint of right thumb At high risk for falls (~06/2021) BMI 30.0-30.9,adult BMI 31.0-31.9,adult BMI 32.0-32.9,adult BMI 33.0-33.9,adult BMI 36.0-36.9,adult Carpal tunnel syndrome on both sides Cellulitis Chigger bites (~10/12/20) Chills (without fever) Chronic anxiety Chronic depression Chronic thoracic back pain Claudication of both lower extremities (~07/13/22) Colon cancer screening Compression fracture of body of thoracic vertebra (08/30/20) anterior wedging of T7 and T8 on CT of the chest 08/20/2020 Contact dermatitis and eczema due to plant Coronary artery calcification seen on CT scan (08/30/20) COVID-19 (06/20/21) PCR test was negative but home test was positive 06/22/2021 COVID-19 long hauler manifesting chronic fatigue (~06/2021) Degenerative arthritis of knee, bilateral Dermatitis Diarrhea Edema, peripheral 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 Galactorrhea of left breast Headache, worsening (~04/11/21) MRI of the brain 04/11/2021 with chronic changes. MRI of the cervical spine with chronic moderate degenerative changes. MRI of the brain and C-spine on 12/21/2022 with chronic nonspecific changes of the brain and moderate spondylosis with moderate to severe spinal stenosis at C6-C7 with moderate to severe left neural foraminal stenosis at C6-C7. Herpes zoster dermatitis (09/25/20) recurrent zoster left T7 dermatome Hypersomnia Hypertension Myofascial pain syndrome of thoracic spine (~01/2023) left upper thoracic myofascial pain Obesity (BMI 30-39.9) Obesity (BMI 30.0-34.9) Pain in right hand (~06/08/22) pain in right thumb with shoveling Approximate 06/08/2022. Polyarticular arthritis right hand on x-ray 06/30/2022. EMG and nerve conduction study upper extremities 07/31/2022 with chronic right C5-C6 radiculopathy and bilateral carpal tunnel syndrome. Peripheral arterial disease (~07/20/22) arterial Doppler study of The lower extremities on 07/20/2022 revealed borderline to mild occlusive arterial disease in the lower extremities with ESTELITA 0.94 and TBI 0.56 in the right lower extremity and ESTELITA of 0.89 and TBI 0.6 in the left lower extremity. arterial Doppler of the upper extremities 07/26/2022 reveals slightly decreased flow in the right hand with index of 0.77 with normal greater than 0.8 with left index 0.86. 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 Upper extremity EMG and nerve conduction study 07/31/2022 with bilateral carpal tunnel syndrome and chronic right C5-C6 radiculopa
--- NOTE | 2023-05-25 09:33 | W.PM.PROC2 ---
Procedure Note - Detailed Date of Procedure 05/25/23 Pre-op Diagnosis left carpal tunnel syndrome Post-op Diagnosis Same Procedure Performed left ectr Surgeon Dwight Sanabria MD Anesthesia MAC Description of Procedure ENDOSCOPIC CARPAL TUNNEL RELEASE INFORMED CONSENT: The patient was seen and examined and marked in the pre-op area.? The patient signed the consent form. PROCEDURE IN DETAIL:The patient taken back to OR on the stretcher in supine position. Time out performed with anesthesia, surgeon and staff agreeing on patient's name site and surgery to be performed SCDs were placed on the lower extremities and inflated. A tourniquet was placed on {left} upper extremity and antibiotics given IV After anesthesia administered sedation I injected {4}cc 1%lido with epi and 0.5% marcaine plain at the operative site The?{left upper extremity}?was prepped and draped in sterile fashion the??{left upper extremity} was? exsanguinated with Esmarch bandage and tourniquet inflated to 250mmHg I made a transverse incision in the {left} volar distal wrist crease through skin and dermis with 15 blade scalpel.? Littler scissors spread down to antebrachial fascia. A small incision was made in antebrachial fascia allowing access to Carpal tunnel. I proceeded with sequential dilation staying in line with the ring finger and hugging the hook of the hamate.? I then used the synovial elevator to free any adhesions from the underside of the transverse carpal ligament. Next I was able to insert the Microaire endoscopic carpal tunnel device with direct visualization of the transverse fibers on the monitor and proceeded with complete segmental retrograde release of the ligament in its entirety.? I irrigated with normal saline and closed with 4-0 monocryl for dermis and subcuticular closure. A dressing of Dermabond, 4x4, glen, and a volar splint was applied for patient safety, security, and comfort and secured with an young bandage after the tourniquet was let down noting the hand was warm and well perfused. The patient was then awaken from anesthesia and transferred to the recovery room in stable condition.? Complications - none EBL- 1cc Disposition - home in stable conditions [facility] Billing Surgery - Charge Forward: Surgery Billing ([id number] [id number])
[2023-05-25] MEDS: LACTATED RINGERS 1,000 ML 30 ML IV CONT (10:50)
[2023-05-25 10:57] VITALS: BP 119/55; PULSE 72; RESP 20; TEMP 36.7; O2SAT 94
--- NOTE | 2023-05-25 11:57 | WPDANESEPPF ---
Anes - Initial Pre Proc Eval Procedure: Operation Date: 05/25/23 12:00 Proposed Procedures p Left Endoscopic Carpal Tunnel Release, Possible Open - Dwight Sanabria MD Date/Time: 05/25/23 11:57 Surgeon: Dwight Sanabria MD Pre Op Diagnosis: left carpal tunnel syndrome Patient Data Age: 67 Gender: F Height: 1.63 m Weight: 91.3 kg Last Vital Signs Temp 98.0 F 05/25/23 10:57 Pulse 72 05/25/23 10:57 Resp 20 05/25/23 10:57 BP 119/55 L 05/25/23 10:57 Pulse Ox 94 05/25/23 10:57 O2 Del Method Room Air 05/25/23 10:57 Allergies Allergy/AdvReac Type Severity Reaction Status Date / Time adhesive tape Allergy Intermediate BLISTERS Verified 05/25/23 10:26 FROM SURG TAPE heparin Allergy Unknown rash Verified 05/25/23 10:26 Penicillins Allergy Unknown Rash Verified 05/25/23 10:26 Home Medications Medication Instructions Recorded Confirmed Type clobetasol 0.05 % topical spray 2 spray topical BID #125 mL 12/02/20 05/25/23 Rx amlodipine 5 mg tablet 5 mg PO . Q.a.m. #30 tabs 04/18/22 05/25/23 Rx ropinirole 3 mg tablet 3 mg PO . q.h.s. #90 tabs 08/28/22 05/25/23 Rx alprazolam 1 mg tablet See Rx Instructions .Route 11/24/22 05/25/23 Rx .COMPLEX #120 tabs furosemide 20 mg tablet 20 mg PO QAM PRN edema #30 tabs 12/07/22 05/25/23 Rx levothyroxine 75 mcg tablet 75 mcg PO DAILY #90 tabs 02/12/23 05/25/23 Rx duloxetine 60 mg capsule,delayed 60 mg PO DAILY #90 caps 04/11/23 05/25/23 Rx release (Cymbalta) oxycodone-acetaminophen 10 mg-325 1 tablet PO Q6H PRN pain #120 tabs 04/16/23 05/25/23 Rx mg tablet (Percocet) hydrocodone 10 mg-acetaminophen 1 tablet PO Q4H PRN pain #120 tabs 05/22/23 05/25/23 Rx 325 mg tablet Patient hx anesthesia problems: none Family hx anesthesia problems: none Results Review: All pre-operative results and documents have been reviewed as part of the pre-operative evaluation. [facility] Past Medical History Medical History (Updated 04/11/23 @ 14:35 by Umesh Meier MD) Acute bronchitis ADHD (attention deficit hyperactivity disorder), inattentive type Arthritis of carpometacarpal (CMC) joint of right thumb At high risk for falls (~06/2021) BMI 30.0-30.9,adult BMI 31.0-31.9,adult BMI 32.0-32.9,adult BMI 33.0-33.9,adult BMI 36.0-36.9,adult Carpal tunnel syndrome on both sides Cellulitis Chigger bites (~10/12/20) Chills (without fever) Chronic anxiety Chronic depression Chronic thoracic back pain Claudication of both lower extremities (~07/13/22) Colon cancer screening Compression fracture of body of thoracic vertebra (08/30/20) anterior wedging of T7 and T8 on CT of the chest 08/20/2020 Contact dermatitis and eczema due to plant Coronary artery calcification seen on CT scan (08/30/20) COVID-19 (06/20/21) PCR test was negative but home test was positive 06/22/2021 COVID-19 long hauler manifesting chronic fatigue (~06/2021) Degenerative arthritis of knee, bilateral Dermatitis Diarrhea Edema, peripheral 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 Galactorrhea of left breast Headache, worsening (~04/11/21) MRI of the brain 04/11/2021 with chronic changes. MRI of the cervical spine with chronic moderate degenerative changes. MRI of the brain and C-spine on 12/21/2022 with chronic nonspecific changes of the brain and moderate spondylosis with moderate to severe spinal stenosis at C6-C7 with moderate to severe left neural foraminal stenosis at C6-C7. Herpes zoster dermatitis (09/25/20) recurrent zoster left T7 dermatome Hypersomnia Hypertension Myofascial pain syndrome of thoracic spine (~01/2023) left upper thoracic myofascial pain Obesity (BMI 30-39.9) Obesity (
[2023-05-25] MEDS: ceFAZolin 2 GM/D5W 50 ML 2 GM/50 ML BAG IVPB (12:02)
[2023-05-25 12:27] VITALS: BP 107/57; PULSE 89; RESP 14; O2SAT 92
[2023-05-25] MEDS: LIDO 1%/EPINEPHRINE 1:100,000 50 ML VIAL 10 ML INFILTRATE (12:42)
[2023-05-25 12:50] VITALS: BP 112/56; PULSE 72; RESP 16; O2SAT 92
[2023-05-25 13:20] VITALS: BP 145/70; PULSE 82; RESP 16
== END 2023-05-25 13:42 | disposition home or self-care (01) ==
PROVIDERS: PCP Family Medicine; Visit Provider Plastic Surgery
PROC: 01N54ZZ Release Median Nerve, Percutaneous Endoscopic Approach (ICD-10-PCS; CPT 29848; principal; 2023-05-25 12:00)
DX: G56.02 Carpal tunnel syndrome, left upper limb (principal); F90.0 Attention-deficit hyperactivity disorder, predominantly inattentive type; F41.9 Anxiety disorder, unspecified; F32.A Depression, unspecified; J43.9 Emphysema, unspecified; K76.0 Fatty (change of) liver, not elsewhere classified; I10 Essential (primary) hypertension; I73.9 Peripheral vascular disease, unspecified; G25.81 Restless legs syndrome; E07.9 Disorder of thyroid, unspecified; G62.9 Polyneuropathy, unspecified; F17.290 Nicotine dependence, other tobacco product, uncomplicated; E66.9 Obesity, unspecified; Z68.34 Body mass index [BMI] 34.0-34.9, adult
CPT/HCPCS: 29848; J0690; J2704; J3010; J7120

== ENCOUNTER 2023-05-29 01:26 | Day surgery (SDC) | payer MEDICARE, SELFPAY ==
[2023-05-16 10:47] VITALS: BMI 34.2
--- NOTE | 2023-05-25 14:35 | SUR.PREOP ---
Patient called regarding upcoming procedure. Message left on patient's voicemail regarding preop instructions, appointment times, and procedure prep.
[2023-05-29 13:41] VITALS: BP 134/66; PULSE 105; RESP 20; TEMP 36.4; O2SAT 98
[2023-05-29] MEDS: LACTATED RINGERS 1,000 ML 150 ML IV CONT (13:43)
--- NOTE | 2023-05-29 15:00 | PM.HPGS ---
History of Present Illness History of Present Illness Consent: Risks, benefits, and alternatives have been discussed and questions answered. Patient agrees to proceed with procedure. Chief complaint: neoplasm screening Narrative: Padmini Mendiola is a 67 year old female here for screening colonoscopy, last one more than 10 years ago Review of Systems Constitutional: Constitutional: Denies headache(s) and Denies weakness Eyes: Eyes: Denies blurry vision ENT: Reports Normal hearing present, Denies headache(s) and Denies neck pain Cardiovascular: Cardiovascular: Denies chest pain and Denies dyspnea Respiratory: Respiratory: Denies dyspnea Gastrointestinal: Gastrointestinal: Reports no additional gastrointestinal complaints Genitourinary: Genitourinary: Denies dysuria Musculoskeletal: Musculoskeletal: Denies neck pain Integumentary/Breasts: Skin/Breast: Denies dry skin Neurologic: Reports Normal hearing present, Denies headache(s) and Denies weakness Psychiatric: Psychiatric: Denies anxiety Endocrine: Endocrine: Denies change in body appearance Hematologic/Lymphatic: Hematologic/Lymphatic: Denies easy bleeding Allergic/Immunologic: Allergic/Immunologic: Denies urticaria [facility] Past Medical History Medical History (Updated 04/11/23 @ 14:35 by Umesh Meier MD) Acute bronchitis ADHD (attention deficit hyperactivity disorder), inattentive type Arthritis of carpometacarpal (CMC) joint of right thumb At high risk for falls (~06/2021) BMI 30.0-30.9,adult BMI 31.0-31.9,adult BMI 32.0-32.9,adult BMI 33.0-33.9,adult BMI 36.0-36.9,adult Carpal tunnel syndrome on both sides Cellulitis Chigger bites (~10/12/20) Chills (without fever) Chronic anxiety Chronic depression Chronic thoracic back pain Claudication of both lower extremities (~07/13/22) Colon cancer screening Compression fracture of body of thoracic vertebra (08/30/20) anterior wedging of T7 and T8 on CT of the chest 08/20/2020 Contact dermatitis and eczema due to plant Coronary artery calcification seen on CT scan (08/30/20) COVID-19 (06/20/21) PCR test was negative but home test was positive 06/22/2021 COVID-19 long hauler manifesting chronic fatigue (~06/2021) Degenerative arthritis of knee, bilateral Dermatitis Diarrhea Edema, peripheral 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 Galactorrhea of left breast Headache, worsening (~04/11/21) MRI of the brain 04/11/2021 with chronic changes. MRI of the cervical spine with chronic moderate degenerative changes. MRI of the brain and C-spine on 12/21/2022 with chronic nonspecific changes of the brain and moderate spondylosis with moderate to severe spinal stenosis at C6-C7 with moderate to severe left neural foraminal stenosis at C6-C7. Herpes zoster dermatitis (09/25/20) recurrent zoster left T7 dermatome Hypersomnia Hypertension Myofascial pain syndrome of thoracic spine (~01/2023) left upper thoracic myofascial pain Obesity (BMI 30-39.9) Obesity (BMI 30.0-34.9) Pain in right hand (~06/08/22) pain in right thumb with shoveling Approximate 06/08/2022. Polyarticular arthritis right hand on x-ray 06/30/2022. EMG and nerve conduction study upper extremities 07/31/2022 with chronic right C5-C6 radiculopathy and bilateral carpal tunnel syndrome. Peripheral arterial disease (~07/20/22) arterial Doppler study of The lower extremities on 07/20/2022 revealed borderline to mild occlusive arterial disease in the lower extremities with ESTELITA 0.94 and TBI 0.56 in the right lower extremity and ESTELITA of 0.89 and TBI 0.6 in the left lower extremity. arterial Doppler of the upper extremities 07/26/2022 reveals slightly decreased flow in the ri
[2023-05-29 15:27] VITALS: BP 90/47; PULSE 74; RESP 18; O2SAT 96
[2023-05-29 15:37] VITALS: BP 107/49; PULSE 94; RESP 22; O2SAT 96
[2023-05-29 15:47] VITALS: BP 133/55; PULSE 88; RESP 23; O2SAT 97
== END 2023-05-29 16:02 | disposition home or self-care (01) ==
PROVIDERS: PCP Family Medicine; Visit Provider Internal Medicine Gastroenterology
PROC: 0DJD8ZZ Inspection of Lower Intestinal Tract, Via Natural or Artificial Opening Endoscopic (ICD-10-PCS; CPT 45378; principal; 2023-05-29 15:00)
DX: Z12.11 Encounter for screening for malignant neoplasm of colon (principal); K64.8 Other hemorrhoids; F41.9 Anxiety disorder, unspecified; F32.A Depression, unspecified; J43.9 Emphysema, unspecified; I10 Essential (primary) hypertension; M79.18 Myalgia, other site; K76.0 Fatty (change of) liver, not elsewhere classified; I73.9 Peripheral vascular disease, unspecified; G62.9 Polyneuropathy, unspecified; F17.290 Nicotine dependence, other tobacco product, uncomplicated; F12.90 Cannabis use, unspecified, uncomplicated; E07.9 Disorder of thyroid, unspecified
CPT/HCPCS: 45380; 88305; J2704; J7120

== ENCOUNTER 2023-09-13 09:58 | Outpatient (CLI) | payer MEDICARE, SELFPAY ==
--- NOTE | ~2023-09-13 | CT_ITS ---
EXAMINATION: CT lung screening DATE: 09/13/2023 10:19 INDICATION: Personal history of nicotine dependence TECHNIQUE: Computed tomography (CT) of the chest was performed without intravenous contrast. The dose -length product was 219.60 mGy- Automated exposure control and iterative reconstruction technique wer e employed. COMPARISON: CT dated 08/30/2020 FINDINGS: No thoracic lymphadenopathy. There is atherosclerosis. Heart size normal. No significant pl eural or pericardial effusion. There are cholecystectomy clips. 2 mm right upper lobe nodule. There i s emphysema. There is apical pleural thickening/scarring. There is a 2 mm right lower lobe nodule in the subpleural location laterally. No endobronchial lesions. No pneumothorax. IMPRESSION: 1. Lung-RADS category 2: Benign appearance or behavior. Continue annual screening with noncontrast lo w-dose chest CT in 12 months. Reviewed, dictated and finalized at location L. IMPRESSION: 1. Lung-RADS category 2: Benign appearance or behavior. Continue annual screeni ng with noncontrast low-dose chest CT in 12 months.
== END 2023-09-13 09:59 | disposition home or self-care (01) ==
LOC: ANHIMG 10:02
PROVIDERS: PCP Family Medicine; Visit Provider Family Medicine
DX: Z12.2 Encounter for screening for malignant neoplasm of respiratory organs (principal); Z87.891 Personal history of nicotine dependence
CPT/HCPCS: 71271

== ENCOUNTER 2024-07-17 12:07 | Outpatient (CLI) | payer MEDICARE, SELFPAY ==
--- NOTE | ~2024-07-17 | XR_ITS ---
EXAM: XR shoulder LT min 2V DATE: 07/17/2024 12:59 HISTORY: M25.512 - Pain in left shoulder, FALL ON ICE 3 WKS AGO . COMPARISON: 02/13/2023, images only. FINDINGS: Osteopenia. No fracture or dislocation. No lytic or blastic lesion. 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 Inferior osteophytosis at the acromial tip. No erosion or perio steal change. Soft tissues within normal limits. IMPRESSION: No acute osseous finding in the left shoulder. Reviewed, dictated and finalized at location K. NICAL SERVICE REP
--- NOTE | ~2024-07-17 | XR_ITS ---
EXAM: XR elbow LT min 3V DATE: 07/17/2024 12:59 HISTORY: M25.512 - Pain in left shoulder, FALL ON ICE 3 WKS AGO . COMPARISON: None available. FINDINGS: Normal mineralization. No fracture or dislocation. No lytic or blastic lesion. Joint space s are maintained. Mild medial and lateral epicondylar enthesopathy. No significant joint effusion No erosion or periosteal change. Soft tissues within normal limits. IMPRESSION: No acute osseous finding in the left elbow. Reviewed, dictated and finalized at location K. ING TECHNICIAN
--- OUTSIDE RECORDS SUMMARY | 2024-07-17 12:59 | XMS_ITS | Referral Summary ---
Author Organization [facility] Address [address] [place] [address] Care Team Providers Care Shredded Filler Cutter Operator Name Role Phone Umesh Meier MD Primary Care Provider [phone] Source Comments [facility],non-owned Affiliates and Associated Physician Practices is amultiple site organization consisting of ambulatory clinics and hospital sitesin [place], [place], [place]. This disclosure is being madepursuant to the Care Everywhere program and may not contain all information available regarding this patient. Last updated 18.[facility] Allergies Active Allergy Reactions Criticality Noted Date Comments Adhesive Sensitivity Rash Medium 01/24/2018 Heparin Swelling Low 06/26/2016 Swelling in the stomach, Swelling in the stomach, Swelling in the stomach Penicillins Rash Medium 06/26/2014 Medications * Be aware that medications may not be up to date on this document. Alwaysverify current medications with the patient. Medication Sig Dispensed Refills Start Date End Date Status Hydrocodone-Acetaminop hen (NORCO PO) Active DULoxetine (CYMBALTA) 60 MG capsule Take 60 mg by mouth once daily Active LEVOTHYROXINE SODIUM PO Take by mouth once daily Active rOPINIRole (REQUIP) 3 MG tablet Take 3 mg by mouth 3 times daily Active ALPRAZolam (XANAX) 1 MG tablet Take 1 mg by mouth 3 times daily as needed Active Active Problems Problem Noted Date Diagnosed Date Vertical diplopia 01/25/2018 Social History Tobacco Use Types Packs/Day Years Used Date Smoking Tobacco: Former Smokeless Tobacco: Former Quit: 10/24/2017 Alcohol Use Standard Drinks/Week Comments No 0 (1 standard drink = 0.6 oz pur e alcohol) Sex and Gender Information Value Date Recorded Sex Assigned at Not on file Gender Identity Not on file Sexual Orientation Not on file Plan of Treatment Not on file Care Teams Shredded Filler Cutter Operator Relationship Specialty Start Date End Date Umesh Meier MD PCP - General 05/21/14
--- OUTSIDE RECORDS SUMMARY | 2024-07-17 12:59 | XMS_ITS | Referral Summary ---
Author Organization [facility] Address [address] [place] [address] Care Team Providers Care Manager Hospice Name Role Phone Umesh Meier MD Primary Care Provider [phone] Allergies Active Allergy Reactions Criticality Noted Date Comments Heparin Swelling Medium 06/26/2016 Swelling in the stomach, Swelling in the stomach, Swelling in the stomach Penicillins Rash Medium 06/26/2014 Medications dextroamphetami ne-amphetamine (ADDERALL) 20 mg tablet 2 Active ALPRAZolam (XANAX) 1 mg tablet TAKE ONE-HALF TO one TABLET BY MOUTH FOUR TIMES DAILY NEEDED FOR SEVERE anxiety Active rOPINIRole (REQUIP) 3 mg tablet Take 1 tablet (3 mg total) by mouth nightly Active amLODIPine (NORVASC) 5 mg tablet Take 1 tablet (5 mg total) by mouth carousel attendant before breakfast 2 Active furosemide (LASIX) 20 mg tablet 2 Active HYDROcodone-young taminophen (NORCO) 10-325 mg per tablet take one tablet BY MOUTH EVERY FOUR hours NEEDED FOR pain Active DULoxetine DR (CYMBALTA) 60 mg capsule Take 1 capsule (60 mg total) by mouth daily 2 Active levothyroxine (SYNTHROID) 75 mcg tablet Take 1 tablet (75 mcg total) by mouth daily Active meloxicam (MOBIC) 15 mg tablet take one tablet BY MOUTH daily NEEDED FOR pain 4 Active oxyCODONE-aceta minophen (PERCOCET) 10-325 mg per tablet TAKE ONE TABLET BY MOUTH EVERY SIX hours NEEDED FOR PAIN. take in place of [place] FOR more SEVERE pain Active Active Problems Problem Noted Date Diagnosed Date Vertical diplopia 01/25/2018 Social History Tobacco Use Types Packs/Day Years Used Date Smoking Tobacco: Former Cigarettes Tobacco Cessation:Counseling Given: No AUDIT-C Answer Date Recorded Q1: How often do you have a drink containing alc ohol? Monthly or less 09/03/2023 Q2: How many drinks containi ng alcohol do you have on a typical day when you are drinking? 1 or 2 09/03/2023 Q3: How often do you have si x or more drinks on one occasion? Never 09/03/2023 Personal Safety Answer Date Recorded Getting School Help Needed Not on file 06/01 Comments Unknown Sex and Gender Information Value Date Recorded Sex Assigned at Not on file Legal Sex Female 1:52 AM MOTHERCRAFT NURSE Gender Identity Not on file Sexual Orientation Not on file Last Filed Vital Signs Vital Sign Reading Time Taken Comments Blood Pressure 146/87 06/14/2023 12:14 PM MOTHERCRAFT NURSE Pulse 89 06/14/2023 12:14 PM MOTHERCRAFT NURSE Temperature - - Respiratory Rate - - Oxygen Saturation - - Inhaled Oxygen Concentration - - Weight 97.3 kg (214 lb 9.6 oz) 09/03/2023 3:03 P M CDT Height 162.6 cm (5' 4 ) 09/03/2023 3:03 PM CDT Body Mass Index 36.84 09/03/2023 3:03 PM CDT Plan of Treatment Not on file Insurance MEDICARE [employer] [facility] MEDICARE Address: [facility] [address] [place] [address] MEDICARE [employer] [facility] MEDICARE Address: [address] [address] Care Teams Manager Hospice Relationship Specialty Start Date End Date Umesh Meier MD [address] [address] PCP - General 10/17/17
--- OUTSIDE RECORDS SUMMARY | 2024-07-17 12:59 | XMS_ITS | Encounter Summary ---
Author Organization [facility] Address [address] [place] [address] Care Team Providers Care Testing Analyst Name Role Phone Umesh Meier MD Primary Care Provider [phone] Encounter Details Date Type Department Care Team (Late st Contact Info) Description 02/10/2020 Lab Requisition [facility] [address] [place] [id number] Desiree Augustine MD [address] [facility] [place] [address] [place] [address] Social History Tobacco Use Types Packs/Day Years Used Date Smoking Tobacco: Former Smokeless Tobacco: Former Quit: 10/24/2017 Alcohol Use Standard Drinks/Week Comments No 0 (1 standard drink = 0.6 oz pur e alcohol) Sex and Gender Information Value Date Recorded Sex Assigned at Not on file Gender Identity Not on file Sexual Orientation Not on file documented as of this encounter Plan of Treatment Not on file documented as of this encounter Procedures Procedure Name Priority Date/Time Associated Diagnosis Comments DERMATOPATHOLOGY Routine 02/09/2020 12:0 0 AM CDT documented in this encounter Results * DERMATOPATHOLOGY (02/09/2020 12:00 AM CDT) Case Report Dermatopathology Report ? Case: [id number] ? Authorizing Provider: ??Desiree Augustine MD ?Collected: ? 02/09/2020 12:00 AM ? Ordering Location: ? [facility] ?Received: ?02/10/2020 10:48 AM ? Pathologist: ? Yaa Storm, ? Specimens: ?? A) - Skin, right FH ? B) - Skin, left arm ? C) - Skin, left back ? D) - Skin, left leg ? 02/10/ 0 5:13 PM CDT DERMATOPATHOLOGY LABORATORY Final Diagnosis Specimen A. 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 SKIN, left arm: FOCALLY THICKENED BASEMENT MEMBRANE INCREASED DERMAL MUCIN SOLAR ELASTOSIS AND VASCULAR ECTASIA (L57.8) (see microscopic description and comment) Specimen C. SKIN, left back: SUPERFICIAL PERIVASCULAR LYMPHOCYTIC INFILTRATE WITH RARE EOSINOPHILS (L27.0) FOCALLY THICKENED BASEMENT MEMBRANE INCREASED DERMAL MUCIN SOLAR ELASTOSIS AND VASCULAR ECTASIA (L57.8) (see microscopic description and comment) Specimen D. SKIN, left leg: SUPERFICIAL PERIVASCULAR LYMPHOCYTIC INFILTRATE (L98.9) FOCALLY THICKENED BASEMENT MEMBRANE INCREASED DERMAL MUCIN SOLAR ELASTOSIS AND VASCULAR ECTASIA (L57.8) POST-INFLAMMATORY PIGMENT ALTERATION (L81.9) (see microscopic description and comment) 0 5:13 PM T DERMATOPATHOLOGY LABORATORY Clinical History A: Atrophic plaque R/O BCC vs DLE. B: LE vs T-cell lymphoma, Hx of T-cell lymphoma. C: LE vs pipa sv CTCL, hx of T-Cell lymphoma. D: Livedo/ med used 0 5:13 PM CDT DERMATOPATHOLOGY LABORATORY Gross Description Specimen A: Received is one formalin filled container labeled with the patient's name and designated right FH. The specimen consists of a shave biopsy measuring 5w8x7hr. Jar 0. Specimen B: Received is one formalin filled container labeled with the patient's name and designated left arm. The specimen consists of a shave biopsy measuring 0a4i3ru, bisected. Jar 0. Specimen C: Received is one formalin filled container labeled with the patient's name and designated left back. The specimen consists of a shave biopsy measuring 9x8w5gq, bisected. Jar 0. Specimen D: Received is one formalin filled container labeled with the patient's name and designated left leg. The specimen consists of a shave biopsy measuring 7d6j7jq, bisected. Jar 0. 0 5:13 PM CDT DERMATOPATHOLOGY LABORATORY Microscopic Description Specimen A. SKIN, right FH: There are scattered dyskeratotic keratinocytes and vacuolar alteration along the basal cell layer. In addition, an underlying band-like infiltrate composed mostly of lymphocytes focally obscures the dermal-epidermal junction. There is a superficial, perivascular and periadnexal infiltrate present. COMMENT: These histologic features are compatible with the submitted clinical impression of lupus erythematosus. Specimen B. SKIN, left arm: Sections show solar elastosis and vascular ectasia. PAS stain reveals a focally thickened basement membrane and colloidal iron highlights increased dermal mucin. Additional deeper sections were obtained and reviewed. COMMENT: Although nonspecific, the focally thickened basement membrane and increased dermal mucin could be seen in a minimally active lesion of connective tissue disease. Specimen C. SKIN, left back: Sections show a perivascular and interstitial infiltrate including lymphocytes and rare eosinophils. Sections show solar elastosis and vascular ectasia. PAS stain reveals a focally thickened basement membrane and colloidal iron highlights increased dermal mucin. Additional deeper sections were obtained and reviewed. COMMENT: Although nonspecific, the focally thickened basement membrane and increased dermal mucin could be seen in a minimally active lesion of connective tissue disease. The presence of eosinophils also raises the possibility of a drug reaction. Clinicopathologic correlation is recommended. Specimen D. SKIN, left leg: Sections show a perivascular and interstitial infiltrate including lymphocytes and rare eosinophils. Sections show solar elastosis and vascular ectasia. There is melanin within melanophages around the superficial vascular plexus. PAS stain reveals a focally thickened basement membrane and colloidal iron highlights increased dermal mucin. Additional deeper sections were obtained and reviewed. COMMENT: Although nonspecific, the focally thickened basement membrane and increased dermal mucin could be seen in a minimally active lesion of connective tissue disease. 0 5:13 PM CDT DERMATOPATHOLOGY LABORATORY Disclaimer An external and internal positive and negative controls are appropriate for the histochemical, immunohistochemical and immunofluorescence stain(s) in this case (if any), except where stated explicitly. The performance characteristics of the stain(s) cited in this report were developed and its performance characteristic determined by the Dermatopathology Laboratory at [facility], directed by Dr. Vikram Erwin. These tests need not be, and therefore are not, approved by the [place] Food and Drug Administration. The tests are used for clinical purposes. Billing Codes Specimen Charges Stain Charges 18447 46389 13948 34930 1 1 1 1 76583 30772 44708 23745 54813 21307 1 1 1 1 1 1 0 5:13 PM CDT DERMATOPATHOLOGY LABORATORY Embedded Images 0 5:13 PM CDT DERMATOPATHOLOGY LABORATORY Pathology/Cytology TISSUE SPECIMEN FROM SKIN / Unknown 02/09/2020 02/10/2020 10:48 AM CDT Miscellaneous samples (specimen) TISSUE SPECIMEN FROM SKIN / Unknown 02/09/2020 02/10/2020 10:48 AM CDT Miscellaneous samples (specimen) TISSUE SPECIMEN FROM SKIN / Unknown 02/09/2020 02/10/2020 10:48 AM CDT Miscellaneous samples (specimen) TISSUE SPECIMEN FROM SKIN / Unknown 02/09/2020 02/10/2020 10:48 AM CDT Desiree Augustine MD LAB - PATHOLOGY/CYTO LOGY ORDERABLES DERMATOPATHOLOGY LABORATORY [facility] - Department of Dermatology Senior Finance Manager Center/[address] [phone] documented in this encounter Visit Diagnoses Not on filedocumented in this encounter Care Teams Testing Analyst Relationship Specialty Start Date End Date Umesh Meier MD PCP - General 05/21/14 documented as of this encounter
--- OUTSIDE RECORDS SUMMARY | 2024-07-17 12:59 | XMS_ITS | Patient Health Summary ---
Author Organization [facility] Address [address] [place] [address] Care Team Providers Care Juvenile Officer Name Role Phone Umesh Meier MD Primary Care Provider [phone] [facility],non-owned Affiliates and Associated Physician Practices is amultiple site organization consisting of ambulatory clinics and hospital sitesin [place], [place], [place] and [place]. This disclosure is being madepursuant to the Care Everywhere program and may not contain all information available regarding this patient. Last updated 18.[facility] Allergies * Adhesive Sensitivity(Rash) -Medium Criticality * Heparin(Swelling) -Low Criticality * Penicillins(Rash) -Medium Criticality Medications * Be aware that medications may not be up to date on this document. Alwaysverify current medications with the patient. * Hydrocodone-Acetaminophen (NORCO PO) * DULoxetine (CYMBALTA) 60 MG capsule Take 60 mg by mouth once daily * LEVOTHYROXINE SODIUM PO Take by mouth once daily * rOPINIRole (REQUIP) 3 MG tablet Take 3 mg by mouth 3 times daily * ALPRAZolam (XANAX) 1 MG tablet Take 1 mg by mouth 3 times daily as needed Active Problems Problem Noted Date Diagnosed Date [...] on file Sexual Orientation Not on file Procedures * DERMATOPATHOLOGY(Performed 02/09/2020) Results * DERMATOPATHOLOGY (02/09/2020 12:00 AM CDT) Case Report Dermatopathology Report ? Case: [id number] ? Authorizing Provider: ??Desiree Augustine MD ?Collected: ? 02/09/2020 12:00 AM ? Ordering Location: ? [facility] ?Received: ?02/10/2020 10:48 AM ? Pathologist: ? Yaa Storm MD ? Specimens: ?? A) - Skin, right FH ? B) - Skin, left arm ? C) - Skin, left back ? D) - Skin, left leg ? 0 5:13 PM CDT DERMATOPATHOLOGY LABORATORY Final [...] specimen consists of a shave biopsy measuring 1n8f0le. Jar 0. Specimen B: Received is one formalin filled container labeled with the patient's name and designated left arm. The specimen consists of a shave biopsy measuring 5j7m2km, bisected. Jar 0. Specimen C: Received is one formalin filled container labeled with the patient's name and designated left back. The specimen consists of a shave biopsy measuring 6h1w9vp, bisected. Jar 0. Specimen D: Received is one formalin filled container labeled with the patient's name and designated left leg. The specimen consists of a shave biopsy measuring 8l3h0ny, bisected. Jar 0. 0 5:13 PM [facility] DERMATOPATHOLOGY LABORATORY Microscopic Description Specimen A. SKIN, [...] of connective tissue disease. 0 5:13 PM [facility] DERMATOPATHOLOGY LABORATORY Disclaimer An external and internal positive and negative controls are appropriate for the histochemical, immunohistochemical and immunofluorescence stain(s) in this case (if any), except where stated explicitly. The performance characteristics of the stain(s) cited in this report were developed and its performance characteristic determined by the Dermatopathology Laboratory at [facility], directed by Dr. Vikram Erwin. These tests need not be, and therefore are not, approved by the [place] Food and Drug Administration. The tests are used for clinical purposes. Billing Codes Specimen Charges Stain Charges 82207 53961 96098 36298 1 1 1 1 41870 88411 31556 32109 48607 30617 1 1 1 1 1 1 0 [...] LAB - PATHOLOGY/CYTO LOGY ORDERABLES DERMATOPATHOLOGY LABORATORY [facility] - Department of Dermatology Medicaid Eligibility Specialist Center/[address] [phone] Care Teams Juvenile Officer Relationship Specialty Start Date End Date Umesh Meier MD PCP - General 05/21/14
--- OUTSIDE RECORDS SUMMARY | 2024-07-17 12:59 | XMS_ITS | Continuity of Care Document ---
Author Organization [facility] Address [address] [place] [address] Phone Care Team Providers Care Truck Farmer Name Role Phone Krishnamurthy OD, Kingsley Unavailable Unavailable Procedures Procedure Date Contact Lens Check Contact Lens Fit, Med Superv, Level 1 Ju Eye Exam & Treatment Refraction Advance Directives Directive Yes / No Effective Date File Name No Information Encounters Encounter Description Practice Location Reason(s) For Visit Diagnoses Date Provider Providers Copied on Encounter [facility], [address] [place] [address] [address], [place], [place], [id number], tel:[phone] [facility] No Information 2-201 0 Krishnamurthy OD Kingsley. [address], [place], [place], Formerly [facility], . tel:[phone] [facility], [address] [place] [address] [address], [place], [place], [id number], [place] tel:[phone] [facility] No Information 1-201 0 Krishnamurthy OD Kingsley. [address], [place], [address], [place]. tel:[phone] [facility], [address] [place] [address] [address], [place], [place], [id number], [place] tel:[phone] [facility] No Information Sep- 8-201 0 Krishnamurthy OD Kingsley. [address], [place], [address], [place]. tel:[phone] Family History Family Member Type Diagnosis Age At Onset No Information Payers Payer name Insurance type Covered republican ID Authoriza tion(s) No Information Social History Type Description Quantity Date Captured Comments Sex Female Smoking Status No Information Chief Complaint And Reason For Visit No Information Reason For Referral Reason For Referral No Information History Of Present Illness Encounter Date Complaint History Of Prese nt Illness No Information Functional Status Date Functional Assessmen t No Information Instructions Date Instruction Additional Infor mation No Information Assessments Type Assessment Date No Information Patient Care Teams Name Effective Dates (start - stop) Status Members No Information
--- OUTSIDE RECORDS SUMMARY | 2024-07-17 12:59 | XMS_ITS | Clinical Summary ---
Author Organization [facility] Address [address] [place] [id number] Care Team Providers Care Assessment Counselor Name Role Phone Umesh Meier MD Primary Care Provider [phone] Allergies Active Allergy Reactions Criticality Noted Date [...] 1 tablet (5 mg total) by mouth audio/video engineer before breakfast 2 Active furosemide (LASIX) 20 [...] NEEDED FOR PAIN. 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 ACCOUNTANT Gender Identity Not on file Sexual Orientation Not on file Obstetrics History Last Filed Vital Signs Vital Sign Reading Time Taken Comments Blood Pressure 146/87 06/14/2023 12:14 PM TAX ACCOUNTANT Pulse 89 06/14/2023 12:14 PM TAX ACCOUNTANT Temperature - - Respiratory Rate - - Oxygen Saturation - - Inhaled Oxygen Concentration - - Weight 97.3 kg (214 lb 9.6 oz) 09/03/2023 3:03 P M CDT Height 162.6 cm (5' 4 ) 09/03/2023 3:03 PM CDT Body Mass Index 36.84 09/03/2023 3:03 PM CDT Plan of Treatment Health Maintenance Due Date Last Done Comments Breast Cancer Screening-Mammogram 1955 Colon Cancer Screening-Colonoscopy 1955 Depression Screening 1955 Fall Risk Assessment 1955 Hepatitis C Screening 1955 Osteoporosis Screening-Bone Density Scan 1955 DTaP/Tdap/Td Vaccine (1 - Tdap) 08/21/1966 Hepatitis B Screening 08/21/1973 Zoster Vaccine (1 of 2) 08/21/2005 Pneumococcal vaccine 65+ (1 of 1 - PCV) 08/21/2020 Well Visit 65+ 08/21/2020 Influenza Vaccine (#1) 2024 Insurance MEDICARE SOLUTIONS [place] [id number] MEDICARE SOLUTIONS [place] [id number] Care Teams Assessment Counselor Relationship Specialty Start Date End Date Umesh Meier MD [address] [address] PCP - General 10/17/17
--- OUTSIDE RECORDS SUMMARY | 2024-07-17 12:59 | XMS_ITS | Clinical Summary ---
Author Organization [facility] Address [address] [place] [address] Care Team Providers Care Creative Technologist Name Role Phone Umesh Meier MD Primary Care Provider [phone] Source Comments [facility],non-owned Affiliates and Associated Physician Practices is amultiple site organization consisting of ambulatory clinics and hospital sitesin [place], [place], [place] and [place]. This disclosure is being madepursuant to the Care Everywhere program and may not contain all information available regarding this patient. Last updated 18.[facility] Allergies Active Allergy Reactions Criticality Noted Date [...] Noted Date Diagnosed Date Vertical diplopia 01/25/2018 Family History Medical History Relation Name Comments Amblyopia Neg Hx Blindness Neg Hx Cataract Neg Hx Glaucoma Neg Hx Macular Degeneration Neg Hx Retinal Detachment Neg Hx Strabismus Neg Hx Thyroid Disease Neg Hx Social History Tobacco Use Types Packs/Day Years Used Date Smoking Tobacco: Former Smokeless Tobacco: Former Quit: 10/24/2017 Alcohol Use Standard Drinks/Week Comments No 0 (1 standard drink = 0.6 oz pur e alcohol) Sex and Gender Information Value Date Recorded Sex Assigned at Not on file Gender Identity Not on file Sexual Orientation Not on file Plan of Treatment Health Maintenance Due Date Last Done Comments BONE DENSITY TESTING 1955 COLOGUARD (AGES 45-75) - COL ON CA SCREENING 1955 COLON MONITORING 1955 COLONOSCOPY - COLON CA SCREENING 1955 CT COLONOGRAPHY - COLON CA SCREENING 1955 Colorectal Cancer Screening 1955 FIT - COLON CA SCREENING 1955 FLEX SIG - COLON CA SCREENING 1955 LIPID TESTING 1955 MAMMOGRAM 1955 HEPATITIS C SCREENING 08/17/1973 DTAP/TDAP/TD VACCINES (1 - Tdap) 08/21/1974 PNEUMOCOCCAL VACCINE 50+ (1 of 1 - PCV) 08/21/2005 ZOSTER VACCINE (1 of 2) 08/21/2005 COVID-19 VACCINE (1 - 2023-2 5 season) 2024 INFLUENZA VACCINE (#1) 2024 DEPRESSION SCREENING 06/18/2024 MEDICARE AWV ? CALENDAR YEAR 2024 Respiratory Syncytial Virus (RSV) Vaccine Pt: or over 60 yrs (1 - 1-dose 75+ series) 08/21/2030 HEPATITIS B VACCINE Aged Out No longe r eligible based on patient's age to complete this topic HIB VACCINE Aged Out No longer eligi ble based on patient's age to complete this topic HPV VACCINE Aged Out No longer eligi ble based on patient's age to complete this topic MENINGOCOCCAL (Group B) VACCINE Aged Out No longer eligible based on patient's age to complete this topic MENINGOCOCCAL VACCINE Aged Out No ely kendall eligible based on patient's age to complete this topic Care Teams Creative Technologist Relationship Specialty Start Date End Date Umesh Meier MD PCP - General 05/21/14
--- OUTSIDE RECORDS SUMMARY | 2024-07-17 13:00 | XMS_ITS | Clinical Summary ---
Author Organization [facility] Address [address] [place] [address]. [place], [place] [id number] [place] [id number] Care Team Providers Care Card Boxer Name Role Phone Umesh Meier MD Primary Care Provider [phone] Allergies Active Allergy Reactions Criticality Noted Date Comments Dermatitis Antigen Rash Medium 01/24/2018 Heparin Swelling Low 06/26/2016 Swelling in the stomach, Swelling in the stomach, Swelling in the stomach Penicillins Rash Medium 06/26/2014 Medications ALPRAZolam 1 MG tablet 2 Active DULoxetine 60 MG capsule Take 1 capsule (60 mg total) by mouth daily. 2 Active amphetamine-dextro amphetamine 20 MG tablet 2 Active furosemide 20 MG tablet 2 Active HYDROcodone-acetam inophen 10-325 MG tablet Take 1 tablet by mouth every 4 (four) hours as needed. FOR PAIN 2 Active levothyroxine 75 MCG tablet Take 1 tablet (75 mcg total) by mouth daily. 2 Active mupirocin 2 % ointment apply topically TO SKIN LESIONS TWICE DAILY UNTIL CLEAR 1 Active ROPINIROLE HYDROCHLORIDE 3 MG Tab Take 1 tablet by mouth nightly at bedtime. 2 Active amLODIPine (NORVASC) 5 MG tablet Take 1 tablet (5 mg total) by mouth every morning. 2 Active meloxicam (MOBIC) 15 MG tablet TAKE ONE TABLET BY MOUTH DAILY NEEDED FOR PAIN 3 Active oxyCODONE-acetamin ophen (PERCOCET) 10-325 MG tablet TAKE ONE TABLET BY MOUTH EVERY 6 HOURS NEEDED FOR PAIN take in place of [place] FOR more SEVERE pain 3 Active Active Problems Problem Noted Date Diagnosed Date Vertical diplopia 01/25/2018 Family History Medical History Relation Comments Hypertension Brother Parkinson's Disease Father Lupus Paternal Aunt Relation Status Comments Brother Alive Father Paternal Aunt Social History Tobacco Use Types Packs/Day Years Used Date Smoking Tobacco: Never Smokeless Tobacco: Never Alcohol Use Standard Drinks/Week Comments Not Currently 0 (1 standard drink = 0.6 oz pur e alcohol) PHQ-2 Answer Date Recorded Patient Health Questionnaire-2 Score 5 11/28/2022 Comments No Sex and Gender Information Value Date Recorded Sex Assigned at Not on file Legal Sex Female 4:45 PM CDT Gender Identity Not on file Sexual Orientation Not on file Last Filed Vital Signs Vital Sign Reading Time Taken Comments Blood Pressure 146/79 11/28/2022 10:24 AM CDT Pulse 86 11/28/2022 9:50 AM CDT Temperature 36.4 ??C (97.5 ??F) 11/28/2022 9:50 AM CD T Respiratory Rate 16 11/28/2022 9:50 AM CDT Oxygen Saturation 97% 11/28/2022 9:50 AM CDT Inhaled Oxygen Concentration - - Weight 90.3 kg (199 lb) 11/28/2022 9:50 AM CDT Height 162.6 cm (5' 4 ) 11/28/2022 9:50 AM CDT Body Mass Index 34.16 11/28/2022 9:50 AM CDT Plan of Treatment Health Maintenance Due Date Last Done Comments Colorectal Cancer Screening Colonoscopy (10 Years) 1955 Hepatitis C 08/21/1973 DTaP, Tdap and Td Vaccines ( 1 - Tdap) 08/21/1974 Mammogram Screening 1995 Zoster Vaccines (1 of 2) 08/21/2005 Annual Medicare Wellness Visit 08/21/2020 Dexa Scan (General) 08/21/2020 Pneumococcal Vaccine: 65+ Ye ars (1 of 1 - PCV) 08/21/2020 PHQ-2 (Physician [place]) 11/29/2023 11/28/2022 COVID-19 Vaccine ( - 2023-2 5 season) 2024 Influenza Adult (#1) 2024 PHQ-2 (Physician [place]) 06/18/2024 11/28/2022 RSV Immunization or 60+ Years (1 - 1-dose 75+ series) 08/21/2030 Meningococcal B Vaccine Aged Out No l onger eligible based on patient's age to complete this topic Meningococcal Vaccine Aged Out No ely kendall eligible based on patient's age to complete this topic RSV Immunizations Under 20 Months Aged Out No longer eligible based on patient's age to complete this topic Insurance [facility] Care Teams Card Boxer Relationship Specialty Start Date End Date Umesh Meier MD [address] [place] [address] [address] [place] [phone] PCP - General FAMILY PRACTICE 10/25/21
== END 2024-07-17 12:08 | disposition home or self-care (01) ==
PROVIDERS: PCP Family Medicine; Visit Provider Family Medicine
DX: M25.512 Pain in left shoulder (principal); W17.89XA Other fall from one level to another, initial encounter
CPT/HCPCS: 73030; 73080

== ENCOUNTER 2024-08-14 12:20 | Outpatient (CLI) | payer MEDICARE, SELFPAY | END 2024-08-14 12:21 | disposition home or self-care (01) | LOC: MICIMG 12:21 | PROVIDERS: PCP Family Medicine; Visit Provider Family Medicine | DX: R90.82 White matter disease, unspecified (principal); S06.9X9A Unspecified intracranial injury with loss of consciousness of unspecified duration, initial encounter; X58.XXXA Exposure to other specified factors, initial encounter | CPT/HCPCS: 70450 ==

== ENCOUNTER 2024-09-09 14:10 | Outpatient (CLI) | payer MEDICARE, SELFPAY ==
--- NOTE | ~2024-09-09 | MM_ITS ---
EXAMINATION: MM screening tan BI w rocky HISTORY: Screening TECHNIQUE: Craniocaudal and mediolateral oblique 3-D tomosynthesis images were obtained and synthetic 2-D images were generated. CAD analysis was submitted and interpreted. COMPARISON: 08/15/2021 and dating back to 09/17/2018 BREAST PARENCHYMAL COMPOSITION: There are scattered areas of fibroglandular density. FINDINGS: Punctate calcifications are detected bilaterally, stable and benign in appearance. Interval development of several asymmetries within the bilateral breasts. Within the right breast, in the slightly upper inner right breast is a well-circumscribed 4 mm asymme try for which spot compression followed by a focused ultrasound is suggested. In addition, in the left breast, are several subcentimeter asymmetries, given the appearance mammogra phically and tomographically of possible oil cysts for which dedicated ultrasound is suggested. Otherwise stable parenchymal pattern without suspicious microcalcifications or architectural distorti on. IMPRESSION: Bilateral asymmetries (as detailed above) for which spot compression followed by ultrasound is recomm ended. BI-RADS Category 0: Incomplete: Needs additional imaging evaluation. Reviewed, dictated and finalized at location A. IMPRESSION: Bilateral asymmetries (as detailed above) for which spot compression followed b y ultrasound is recommended. BI-RADS Category 0: Incomplete: Needs additional imaging evaluation.
== END 2024-09-09 14:11 | disposition home or self-care (01) ==
LOC: MICIMG 14:11
PROVIDERS: PCP Family Medicine; Visit Provider Family Medicine
DX: Z12.31 Encounter for screening mammogram for malignant neoplasm of breast (principal); R92.8 Other abnormal and inconclusive findings on diagnostic imaging of breast
CPT/HCPCS: 77063; 77067

== ENCOUNTER 2024-10-01 09:06 | Outpatient (CLI) | payer MEDICARE, SELFPAY ==
--- NOTE | ~2024-10-01 | MMUS_ITS ---
EXAMINATION: MM diagnostic tan RT w rocky, US breast LT complete, US breast RT limited HISTORY: Follow-up right breast mass and left breast asymmetries TECHNIQUE: Additional 3-D tomosynthesis images of the right breast were performed and synthetic 2-D i mages were generated. CAD analysis was submitted and interpreted. High resolution Limited right and c omplete left breast ultrasound was performed. COMPARISON: Comparison to multiple prior studies sequentially, with oldest reviewed study dated 08/01. BREAST PARENCHYMAL COMPOSITION: Not dense: There are scattered areas of fibroglandular density. FINDINGS: MAMMOGRAPHIC FINDINGS: There is a small circumscribed periareolar mass of the right breast. There are no suspicious calcific ations or architectural distortion. ULTRASOUND: Limited right breast ultrasound: At 1:00, 1 cm from the nipple there is a 3 mm cyst. At 1:00, 5 cm fr om the nipple there is a slightly irregular shaped hypoechoic 4 mm mass with posterior shadowing. No internal vascularity. Complete left breast ultrasound including all 4 quadrants in the subareolar location: At 12:00, 5 cm from the nipple there is a 3 mm cyst. At 12:00, 6 cm from the nipple there is a 3 mm cyst. At 3:00, 8 cm from the nipple there is a 2 mm cyst. At 5:00 in the subareolar location there is a small 6 mm li jennifer. At 11:00 subareolar location there is a 3 mm cyst. IMPRESSION: 1. Small irregular shaped hypoechoic right breast mass by ultrasound at 1:00, 5 cm from the nipple me asuring 4 mm, likely benign. Benign findings of the left breast. 2. Recommend 6 month follow-up Limited right breast ultrasound BI-RADS category 3, probably benign findings. Reviewed, dictated and finalized at location B. IMPRESSION: 1. Small irregular shaped hypoechoic right breast mass by ultrasound at 1:00, 5 cm from the nipple measuring 4 mm, likely benign. Benign findings of the left breast. 2. Recommend 6 month follow-up Limited right breast ultrasound BI-RADS category 3, probably benign findings. IMPRESSION: 1. Small irregular shaped hypoechoic right breast mass by ultrasound at 1:00, 5 cm from the nipple measuring 4 mm, likely benign. Benign findings of the left breast. 2. Recommend 6 month follow-up Limited right breast ultrasound BI-RADS category 3, probably benign findings.
== END 2024-10-01 09:07 | disposition home or self-care (01) ==
LOC: MICIMG 09:07
PROVIDERS: PCP Family Medicine; Visit Provider Family Medicine
DX: R92.8 Other abnormal and inconclusive findings on diagnostic imaging of breast (principal); N63.12 Unspecified lump in the right breast, upper inner quadrant
CPT/HCPCS: 76641; 76642; 77061; 77065; G0279

== ENCOUNTER 2024-12-09 14:05 | Outpatient (CLI) | payer MEDICARE, SELFPAY ==
--- NOTE | ~2024-12-09 | CT_ITS ---
Non-contrast CT scan of the Abdomen and Pelvis Clinical indication: Abnormal serum enzyme levels, lupus Technique: 2.5 mm axial scans were obtained through the abdomen and pelvis without intravenous or or al contrast. Dose reduction technique was used on this scan by utilizing automated exposure control a nd iterative reconstruction technique. The dose-length product (DLP) was 1014.09 mGy-cm. Findings: Images through the lung bases reveal no abnormalities. There are probable bilateral renal vascular calcifications rather than renal stones. No hydronephrosi s. There is marked, diffuse hepatic steatosis. Cholecystectomy clips are present. The spleen, pancreas, and adrenals appear normal. There are atherosclerotic calcifications of the aorta. . There is no evidence of bowel obstruction. Images through the pelvis were performed. There is no evidence of ascites or lymphadenopathy. Urinary bladder unremarkable. Status post hysterectomy. No pelvic mass evident. Impression: Diffuse hepatic steatosis. Probable renal vascular calcifications rather than renal stones. No ureteral stone or hydronephrosis. Reviewed, dictated and finalized at [facility]. Impression: Diffuse hepatic steatosis. Probable renal vascular calcifications rather than renal stones. No ureteral st one or hydronephrosis.
== END 2024-12-09 14:06 | disposition home or self-care (01) ==
LOC: MICIMG 14:06
PROVIDERS: PCP Family Medicine; Visit Provider Family Medicine
DX: R74.8 Abnormal levels of other serum enzymes (principal)
CPT/HCPCS: 74176

== ENCOUNTER 2024-12-25 10:08 | Outpatient (CLI) | payer MEDICARE, SELFPAY ==
--- NOTE | ~2024-12-25 | CT_ITS ---
CT Scan of the Chest without Contrast: Clinical Indication: Lung cancer screening, nicotine dependence Technique: Contiguous sections were acquired throughout the chest without intravenous contrast. Dose reduction technique was used on this scan by utilizing automated exposure control and iterative recon struction technique. The dose-length product (DLP) was 317.67 mGy-cm. COMPARISON: 09/13/2023 Findings: There is no evidence of any significant mediastinal, hilar or axillary lymphadenopathy. The mediastin al soft tissues appear normal. There is no evidence of pleural or pericardial effusion. The lungs are clear. No pulmonary nodules or infiltrates are noted. Moderate emphysema present. Images through the upper abdomen reveal diffuse hepatic steatosis. Impression: Lung RADS 1: Negative. [address] advised. Moderate emphysema. Reviewed, dictated and finalized at [facility]. Impression: Lung RADS 1: Negative. [address] advised. Moderate emphysema.
== END 2024-12-25 10:09 | disposition home or self-care (01) ==
PROVIDERS: PCP Family Medicine; Visit Provider Family Medicine
DX: J43.9 Emphysema, unspecified (principal); Z12.2 Encounter for screening for malignant neoplasm of respiratory organs; Z87.891 Personal history of nicotine dependence
CPT/HCPCS: 71271

== ENCOUNTER 2024-12-25 13:15 | Outpatient (CLI) | payer MEDICARE, SELFPAY ==
--- OUTSIDE RECORDS SUMMARY | 2024-12-25 13:26 | XMS_ITS | Referral Summary ---
Author Organization [facility] Address [address] [place] [address] Care Team Providers Care Chief Client Officer Name Role Phone Umesh Meier MD Primary Care Provider [phone] Allergies Active Allergy Reactions Criticality Noted Date [...] 1 tablet (5 mg total) by mouth director of occupational therapy before breakfast 2 Active furosemide (LASIX) 20 [...] NEEDED FOR PAIN. take in place of [place] FOR more SEVERE pain Active Active Problems [...] on file Legal Sex Female 1:52 AM TECHNICAL AID Gender Identity Not on file Sexual Orientation Not on file Last Filed Vital Signs Vital Sign Reading Time Taken Comments Blood Pressure 146/87 06/14/2023 12:14 PM TECHNICAL AID Pulse 89 06/14/2023 12:14 PM TECHNICAL AID Temperature - - Respiratory Rate - - Oxygen Saturation - - Inhaled Oxygen Concentration - - Weight 97.3 kg (214 lb 9.6 oz) 09/03/2023 3:03 P M CDT Height 162.6 cm (5' 4) 09/03/2023 3:03 PM CDT Body Mass Index 36.84 09/03/2023 3:03 PM CDT Plan of Treatment Not on file Insurance [facility] MEDICARE ADVANTAGE [facility] MEDICARE Address: [facility] [address] [place] [address] [facility] MEDICARE ADVANTAGE [facility] MEDIC[facility] Address: [address] [address] Care Teams Chief Client Officer Relationship Specialty Start Date End Date Umesh Meier MD [address] [address] PCP - General 10/17/17
--- OUTSIDE RECORDS SUMMARY | 2024-12-25 13:27 | XMS_ITS | Encounter Summary ---
Author Organization [facility] Address [facility] [facility] [place] [address] Care Team Providers Care Slp Name Role Phone Umesh Meier MD Primary Care Provider [phone] Encounter Details Date Type Department Care Team (Late st Contact Info) Description 11/17/2024 Lab Requisition [facility] - DermPath Lab [address] [facility] [facility] [place] [address] Desiree Augustine MD [address] 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 Physician [facility] - Received: 11/17/2024 01:37 PM DermPath Lab Pathologist: Maya Mancini MD Specimen: Skin, left arm 3:50 PM CDT DERMATOPATHOLOGY LABORATORY Final Diagnosis Specimen A. SKIN, left arm: VACUOLAR INTERFACE DERMATITIS WITH SUPERFICIAL PERIVASCULAR LYMPHOCYTIC INFILTRATE WITH YEAST FORMS IN THE FOLLICULAR OSTIUM (L30.8) (see microscopic description and comment) 3:50 PM CDT DERMATOPATHOLOGY LABORATORY at 1550 CDT Clinical History [place] Papule R/O BCC 3:50 PM CDT DERMATOPATHOLOGY LABORATORY Gross Description Specimen A: Received is one formalin filled container labeled with the patient's name and designated left arm. The specimen consists of a shave biopsy measuring 7x6x1 mm. Jar 0. 3:50 PM CDT DERMATOPATHOLOGY LABORATORY Microscopic Description Specimen A. SKIN, left arm: There are scattered dyskeratotic keratinocytes and vacuolar alteration along the basal cell layer. A mild, perivascular lymphocytic infiltrate is observed in the superficial dermis. 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 CD3 highlights the lymphocytes with a CD4 to CD8 ratio of 3:1. CD123 highlights 10-20% of the cells in the infiltrate. COMMENT: The histological differential includes pityriasporum folliculitis although there is a minimal inflammatory infiltrate surrounding the follicular ostium with the yeast forms and lupus erythematous. Clinicopathologic correlation is recommended. 3:50 PM CDT DERMATOPATHOLOGY LABORATORY Disclaimer An external and internal positive and negative controls are appropriate for the histochemical, immunohistochemical and immunofluorescence stain(s) in this case (if any), except where stated explicitly. The performance characteristics of the stain(s) cited in this report were developed and its performance characteristic determined by the Dermatopathology Laboratory at [facility], directed by Dr. Vikram Erwin. These tests need not be, and therefore are not, approved by the [place] Food and Drug Administration. The tests are used for clinical purposes. Billing Codes Specimen Charges Stain Charges 45929 1 [id number] 22329 1 1 1 1 1 3:50 PM CDT DERMATOPATHOLOGY LABORATORY Embedded Images 3:50 PM CDT DERMATOPATHOLOGY LABORATORY Pathology/Cytolo gy TISSUE SPECIMEN FROM SKIN / Unknown 11/17/2024 8:38 AM CDT 11/17/2024 1:37 PM CDT Desiree Augustine MD LAB - PATHOLOGY/CYTOLOGY ORD ERABLES Final Result DERMATOPATHOLOGY LABORATORY [facility] - Department of Dermatology [facility] [address] [place] [address], [address] [phone] documented in this encounter Visit Diagnoses Not on filedocumented in this encounter Care Teams Slp Relationship Specialty Start Date End Date Umesh Meier MD PCP - General 05/21/14 documented as of this encounter
--- OUTSIDE RECORDS SUMMARY | 2024-12-25 13:27 | XMS_ITS | Encounter Summary ---
Author Organization [facility] Address [facility] [place] [address] Care Team Providers Care Internal Grinder Tender Name Role Phone Umesh Meier MD Primary Care Provider [phone] Encounter Details Date Type Department Care Team (Late st Contact Info) Description 02/10/2020 Lab Requisition [facility] DermPath Lab [address] [facility], [place] [phone] Desiree Augustine MD [address] 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 DEVELOPER Gender Identity Not on file Sexual Orientation Not on file documented as of this encounter Plan of Treatment Not on file documented as of this encounter Procedures Procedure Name Priority Date/Time Associated Diagnosis Comments DERMATOPATHOLOGY Routine 02/09/2020 12:0 0 AM CDT documented in this encounter Results * DERMATOPATHOLOGY (02/09/2020 12:00 AM CDT) Case Report Dermatopathology Report Case: [id number] Authorizing Provider: Desiree Augustine MD Collected: 02/09/2020 12:00 AM Ordering Location: [facility] DermPath Lab Received: 02/10/2020 10:48 AM Pathologist: Yaa Storm MD Specimens: A) - Skin, right FH B) - Skin, left arm C) - Skin, left back D) - Skin, left leg 0 5:13 PM CDT DERMATOPATHOLOGY LABORATORY Final [...] microscopic description and comment) 0 5:13 PM CDT DERMATOPATHOLOGY LABORATORY at 1713 CDT Clinical History A: Atrophic plaque R/O BCC [...] specimen consists of a shave biopsy measuring 3t8y4pp. Jar 0. Specimen B: Received is one formalin filled container labeled with the patient's name and designated left arm. The specimen consists of a shave biopsy measuring 9t0a3ee, bisected. Jar 0. Specimen C: Received is one formalin filled container labeled with the patient's name and designated left back. The specimen consists of a shave biopsy measuring 6z4a7uo, bisected. Jar 0. Specimen D: Received is one formalin filled container labeled with the patient's name and designated left leg. The specimen consists of a shave biopsy measuring 2m1y1tt, bisected. Jar 0. 0 5:13 PM CDT [...] characteristic determined by the Dermatopathology Laboratory at [facility], directed by Dr. Vikram Erwin. These tests need not be, and therefore are not, approved by the [place] Food and Drug Administration. The tests are used for clinical purposes. Billing Codes Specimen Charges Stain Charges 17373 80551 82623 36397 1 1 1 1 94122 28903 19435 64858 72806 83014 1 1 1 1 1 1 0 [...] AM CDT Desiree Augustine MD LAB - PATHOLOGY/CYTOLOGY ORD ERABLES Final Result DERMATOPATHOLOGY LABORATORY [facility] - Department of Dermatology [employer]/[address] [phone] documented in this encounter Visit Diagnoses Not on filedocumented in this encounter Care Teams Internal Grinder Tender Relationship Specialty Start Date End Date Umesh Meier MD PCP - General 05/21/14 documented as of this encounter
--- OUTSIDE RECORDS SUMMARY | 2024-12-25 13:27 | XMS_ITS | Data Portability ---
Author Organization [place] [facility] Address [address] [place] [address] Assessment No assessment recorded. Plan of Treatment Reminders Order Date Submit Date Provider Last Modified By Organization Details Last Modified Time Details Appointments None record ed. Lab None record ed. Referral None record ed. Procedures None record ed. Surgeries None record ed. Imaging None record ed. Medication Orders None record ed. Patient TargetsNo targets recorded. Patient InstructionsNo instructions recorded. Reason for Referral None Reported. Problems Name Problem SNOMED Code Status Onset Date Resolution Date Notes Provider Name and Address Organization Details Recorded Time Chronic back pain 863019762 Active 2021 Not Available [facility] 3 00:16:14 Hypothyroidis m 12084949 Active 2021 Not Available [facility] 3 00:16:14 Nerve injury 79160325 Active 2021 Not Available [facility] 3 00:16:14 Problem Notes None recorded. Medical Equipment None Reported. Allergies Allergen ID Allergen Name Allergen Category Reaction Reaction Severity Criticality Documentation Date Start Date Code Code System Note Provider Name and Address Organization Details Recorded Time 840576 heparin medicatio n Not available Not available Not available 06/26/2022 5224 RxNorm Not Available [facility] 3 00:16:44 241006 adhesive tape environme nt,medica tion Not available Not available Not available 06/26/2022 85183 UNK Not Available [facility] 3 00:16:44 Medications Name Sig Start Date Stop Date Status Note LastModified by Organization Details LastModified Time alprazolam 1 mg tablet TAKE ONE-HALF TO ONE TABLET BY MOUTH UP TO FOUR TIMES DAILY NEEDED FOR SEVERE anxiety active Not Available Not Available No t Available tizanidine 4 mg tablet TAKE ONE TABLET BY MOUTH THREE TIMES DAILY NEEDED FOR muscle spasticity active Not Available Not Available N ot Available fluconazole 150 mg tablet TAKE ONE TABLET BY MOUTH EVERY 3 DAYS active Not Available Not Available No t Available meloxicam 15 mg tablet take one tablet BY MOUTH daily NEEDED FOR pain active Not Available Not Available No t Available prednisone 20 mg tablet TAKE TWO TABLETS BY MOUTH EVERY MORNING FOR FIVE DAYS active Not Available Not Available No t Available ropinirole 3 mg tablet TAKE ONE TABLET BY MOUTH DAILY AT BEDTIME active Not Available Not Available N ot Available metronidazol e 500 mg tablet TAKE ONE TABLET BY MOUTH EVERY 12 hours FOR SEVEN DAYS no alcohol while taking AND FOR 72 hours AFTER last DOSE active Not Available Not Available No t Available hydroxyzine HCl 50 mg tablet TAKE ONE TABLET BY MOUTH AT BEDTIME NEEDED FOR insomnia active Not Available Not Available No t Available amlodipine 5 mg tablet TAKE ONE TABLET BY MOUTH EVERY MORNING active Not Available Not Available No t Available sulfamethoxa zole 800 mg-trimethop rim 160 mg tablet TAKE ONE TABLET BY MOUTH EVERY TWELVE HOURS active Not Available Not Available No t Available hydrocodone 10 mg-acetamino phen 325 mg tablet TAKE ONE TABLET BY MOUTH EVERY 4 HOURS NEEDED FOR PAIN active Not Available Not Available No t Available levothyroxin e 75 mcg tablet TAKE ONE TABLET BY MOUTH DAILY active Not Available Not Available Not Available oxycodone-ac etaminophen 10 mg-325 mg tablet TAKE ONE TABLET BY MOUTH EVERY 6 HOURS NEEDED FOR PAIN take in place of norco FOR more SEVERE pain active Not Available Not Available No t Available cephalexin 500 mg capsule active Not Available Not Available Not Available pantoprazole 40 mg tablet,delay ed release TAKE ONE TABLET BY MOUTH EVERY MORNING active Not Available Not Available No t Available dextroamphet amine-amphet amine 20 mg tablet TAKE ONE TABLET BY MOUTH DAILY active Not Available Not Available Not Available furosemide 20 mg tablet TAKE ONE TABLET BY MOUTH EVERY MORNING NEEDED FOR EDEMA active Not Available Not Available No t Available duloxetine 60 mg capsule,henrik yed release TAKE ONE CAPSULE BY MOUTH AT BEDTIME active Not Available Not Available No t Available Vitals Date Recorded Oxygen saturation Oxygen saturation in Arterial blood by Pulse oximetry Heart rate Body temperature Body weight Systolic And Diastolic Provider Name and Address Organization Details Last Updated DateTime 2 97 % 97 % 78 /min 98.5 [degF] 85845.2 9 g 128/80 mm[Hg] Not Available [facility] 3 00:15:51 Social History None recorded. Functional Status None recorded. Mental Status None recorded. Family History Nothing Reported. Medical History No medical history recorded. Gynecological HistoryNo gynecological history recorded. Obstetrics History GPAL:G 0 P 0 0 0 0 Past Encounters Encounter ID Performer Location Encounter Start Date Encounter Closed Date Diagnosis/Indication Diagnosis SNOMED-CT Code Diagnosis ICD10 Code Diagnosis Note [id number] Shad Lawton NP [facility]_[address] [address] 03/03/2022 00:00:00 03/03/2022 11:30:08 Health Concerns Section Related Observation LastModified by Organization Detai ls LastModified Time None Recorded Concern Status LastModified by Organization Details LastModified Time None Recorded Advance Directives Directive None Recorded Payers Insurance Date Sequence Insurance Name Policy Number Policy Chapman Covered Member ID Chapman Member ID Guarantor Name 11/09/2023 1 [facility] (MEDICARE REPLACEMENT/A DVANTAGE - PPO) [id number] Padmini Mendiola [id number] Padmini Mendiola OBGyn Episode No OBEpisode recorded.
--- OUTSIDE RECORDS SUMMARY | 2024-12-25 13:27 | XMS_ITS | Clinical Summary ---
Author Organization [facility] Address [address] [place] [address] Care Team Providers Care Copyright Manager Name Role Phone Umesh Meier MD Primary Care Provider Allergies Active Allergy Reactions Criticality Noted Date [...] 86 11/28/2022 9:50 AM CDT Temperature 36.4 C (97.5 F) 11/28/2022 9:50 AM CDT Respiratory Rate 16 11/28/2022 9:50 AM CDT Oxygen Saturation 97% 11/28/2022 9:50 AM CDT Inhaled Oxygen Concentration - - Weight 90.3 kg (199 lb) 11/28/2022 9:50 AM CDT Height 162.6 cm (5' 4) 11/28/2022 9:50 AM CDT Body Mass Index 34.16 11/28/2022 9:50 AM CDT Plan of Treatment Health Maintenance Due Date Last Done Comments Colorectal Cancer Screening Colonoscopy (10 Years) 1955 Hepatitis C 08/21/1973 DTaP, Tdap and Td Vaccines ( 1 - Tdap) 08/21/1974 Mammogram Screening 1995 Pneumococcal Vaccine: 50+ Ye ars (1 of 1 - PCV) 08/21/2005 Zoster Vaccines (1 of 2) 08/21/2005 Annual Medicare Wellness Visit 08/21/2020 Dexa Scan (General) 08/21/2020 COVID-19 Vaccine ( - 2023-2 5 season) 2024 PHQ-2 (Physician [place]) 06/18/2024 RSV Immunization or 60+ Years (1 - 1-dose 75+ series) 08/21/2030 Meningococcal B Vaccine Aged Out No l onger eligible based on patient's age to complete this topic Meningococcal Vaccine Aged Out No ely kendall eligible based on patient's age to complete this topic RSV Immunizations Under 20 Months Aged Out No longer eligible based on patient's age to complete this topic Insurance [facility] Care Teams Copyright Manager Relationship Specialty Start Date End Date Umesh Meier MD [address] [place] [address] [address] [place] [address] PCP - General FAMILY PRACTICE 10/25/21
--- OUTSIDE RECORDS SUMMARY | 2024-12-25 13:27 | XMS_ITS | Clinical Summary ---
Author Organization [facility] Address [address] [facility] [place] [address] Care Team Providers Care Reacher Name Role Phone Umesh Meier MD Primary Care Provider [phone] Source Comments [facility],non-owned Affiliates and Associated Physician Practices is amultiple site organization consisting of ambulatory clinics and hospital sitesin [place], [place], [place] and [place]. This disclosure is being madepursuant to the Care Everywhere program and may not contain all information available regarding this patient. Last updated 18.[facility] [employer] Allergies Active Allergy Reactions Criticality Noted Date Comments Adhesive Sensitivity Rash Medium 01/24/2018 Heparin Swelling Low 06/26/2016 Swelling in the stomach, Swelling in the stomach, Swelling in the stomach Penicillins Rash Medium 06/26/2014 Medications * Be aware that medications may not be up to date on this document. Alwaysverify current medications with the patient. 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 Gender Identity Not on file Sexual Orientation [...] VACCINE (1 of 2) 08/21/2005 COVID-19 VACCINE ( - 2023-2 5 season) 2024 DEPRESSION SCREENING 06/18/2024 MEDICARE AWV CALENDAR YEAR 2024 INFLUENZA VACCINE (Season Ended) 2025 Respiratory Syncytial Virus (RSV) Vaccine Pt: or [...] to complete this topic MENINGOCOCCAL (Group B) VACC INE SHARED DECISION-MAKING Aged Out No longer eligibl e based on patient's age to complete this topic MENINGOCOCCAL GROUPS A/C/Y/W VACCINE Aged Out No longer eligible b ased on patient's age to complete this topic Procedures Procedure Name Priority Date/Time Associated Diagnosis Comments DERMATOPATHOLOGY Routine 11/17/2024 8:38 AM CDT from Last 3 Months Results * DERMATOPATHOLOGY (11/17/2024 8:38 AM CDT) Case Report Dermatopathology Report Case: [id number] Authorizing Provider: Desiree Augustine MD Collected: 11/17/2024 08:38 AM Ordering Location: [facility] - Received: 11/17/2024 01:37 PM DermPath Lab Pathologist: Maya Mancini MD Specimen: Skin, left arm 3:50 PM CDT DERMATOPATHOLOGY LABORATORY Final Diagnosis Specimen A. SKIN, left arm: VACUOLAR INTERFACE DERMATITIS WITH SUPERFICIAL PERIVASCULAR LYMPHOCYTIC INFILTRATE WITH YEAST FORMS IN THE FOLLICULAR OSTIUM (L30.8) (see microscopic description and comment) 3:50 PM CDT DERMATOPATHOLOGY LABORATORY at 1550 CDT Clinical History [place] Papule R/O BCC 3:50 PM CDT DERMATOPATHOLOGY [...] characteristic determined by the Dermatopathology Laboratory at [facility], directed by Dr. Vikram Erwin. These tests need not be, and therefore are not, approved by the [place] Food and Drug Administration. The tests are used for clinical purposes. Billing Codes Specimen Charges Stain Charges 46775 1 23887 05497 48809 52316 11956 1 1 1 1 1 5 3:50 PM CDT DERMATOPATHOLOGY LABORATORY Embedded Images 3:50 PM CDT DERMATOPATHOLOGY LABORATORY Pathology/Cytolo gy TISSUE SPECIMEN FROM SKIN / Unknown 11/17/2024 8:38 AM CDT 11/17/2024 1:37 PM CDT Desiree Augustine MD LAB - PATHOLOGY/CYTOLOGY ORD ERABLES Final Result Performing Organization Address City/State/[facility] Co de Phone Number DERMATOPATHOLOGY LABORATORY [facility] - Department of Dermatology [facility] Medicine [address] [place] [address], [address] [phone] from Last 3 Months Insurance [facility] MANAGED MEDICARE ADV SELF PAY NO INSURANCE Member Subscriber Plan / Payer (Ef fective for All Dates) Name:Padmini Lopez Member ID:Not on file Relation to Subscriber:Not on file Name:PADMINI LOPEZ Subscriber ID:Not on file Address: [place] [address] Payer ID:Not on file Group ID:Not on file Type:Self Pay Address: [place], [place] [employer] MANAGED MEDICARE ADV Care Teams Reacher Relationship Specialty Start Date End Date Umesh Meier MD PCP - General 05/21/14
--- OUTSIDE RECORDS SUMMARY | 2024-12-25 13:27 | XMS_ITS | Clinical Summary ---
Author Organization [facility] Address [address] [place] [address] Care Team Providers Care Manager Labor Relations Name Role Phone Umesh Meier MD Primary Care Provider [phone] Allergies Active Allergy Reactions Criticality Noted Date [...] 1 tablet (5 mg total) by mouth acute care clinical nurse specialist before breakfast 2 Active furosemide (LASIX) 20 [...] NEEDED FOR PAIN. 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 Gender Identity Not on file Sexual Orientation Not on file Obstetrics History Last Filed Vital Signs Vital Sign Reading Time Taken Comments Blood Pressure 146/87 06/14/2023 12:14 PM OPERATING ROOM REGISTERED NURSE Pulse 89 06/14/2023 12:14 PM OPERATING ROOM REGISTERED NURSE Temperature - - Respiratory Rate - [...] - Tdap) 08/21/1966 Hepatitis B Screening 08/21/1973 Pneumococcal vaccine 65+ (1 of 1 - PCV) 08/21/2005 Zoster Vaccine (1 of 2) 08/21/2005 Well Visit 65+ 08/21/2020 Influenza Vaccine (#1) 2025 Insurance [facility] MEDICARE ADVANT[facility] Member Subscriber Plan / Payer (Ef fective 2017-Present) Name:MARLENAPADMINI Relation to Subscriber:Self Name:[place] Payer ID:[id number] (NAIC) Type:[facility] MEDICARE Address: [place] [id number] [facility] MEDICARE ADVANTAGE Care Teams Manager Labor Relations Relationship Specialty Start Date End Date Umesh Meier MD [address] [address] PCP - General 10/17/17
--- NOTE | 2024-12-26 10:43 | WPDSIXMINUTE ---
Six Minute Walk Procedure Procedure Performed Pulmonary Stress Test (6 min walk) Six Minute Walk Six Minute Walk: This is a 6 minute walk test. The test was performed and interpreted in accordance with the 2014 ERS/ATS task force guidelines. Of note, patient used to wheeled walker for stability and stopped the walk test at 5 minutes due to back pain and knee pain. Findings: The patient's resting room air oxygen saturation measured by pulse oximetry was 96%, the heart rate was 96 bpm, and the modified Stephenie dyspnea score was 0. Patient ambulated for 244 meters and oxygen saturation remained 93 to 96%. At the end of the study the heart rate was 118 bpm and the modified Stephenie dyspnea score was 3. The patient did not qualify for supplemental oxygen at rest or with ambulation. There are no prior studies for comparison.
== END 2024-12-25 13:16 | disposition home or self-care (01) ==
PROVIDERS: PCP Family Medicine; Visit Provider Family Medicine
DX: R06.02 Shortness of breath (principal)
CPT/HCPCS: 94618

== ENCOUNTER 2025-04-03 15:11 | Outpatient (CLI) | payer MEDICARE, SELFPAY ==
--- NOTE | ~2025-04-03 | DEXA_ITS ---
Bone Density Report Name: CHINEDU LOPEZ Age: 69 Sex: Female Ethnicity: White Date of : 1955 Indication: postmenopausal; screening for osteoporosis; hysterectomy; Referring Provider: ARI WALSH Study: Bone densitometry was performed. Exam Date: April 03, 2025 Accession number: [id number] Bone Density: Region BMD T-score Z-score Classification AP Spine(L1, L2, L3) 0.965 -0.5 1.5 Normal Femoral Neck (Left) 0.801 -0.4 1.3 Normal Total Hip (Left) 1.020 0.6 2.1 Normal Femoral Neck (Right) 0.843 -0.1 1.7 Normal Total Hip (Right) 0.922 -0.2 1.3 Normal Total Hip Mean 0.971 0.2 1.7 Normal World Health Organization criteria for BMD impression classify patients as: Normal (T-score at or above -1.0), Osteopenia (T-score between -1.0 and -2.5), or Osteoporosis (T-score at or below -2.5). 10-year Fracture Risk: FRAX not reported because: All T-scores for Spine Total, Hip Total, Femoral Neck at or above -1.0 Previous Exams: -- Region Exam Age BMD T-score BMD Change BMD Change Date g/cm2 vs Baseline vs Previous -- Total Hip(Left) 04/03/2025 69 1.020 0.6 7.2%* 7.2%* 10/06/2020 65 0.952 0.1 Total Hip(Right) 04/03/2025 69 0.922 -0.2 3.0% 3.0% 10/06/2020 65 0.895 -0.4 -- *Denotes significance at 95% confidence level, LSC for Total Hip = 0.027 g/cm2 Clinical Information Provided by Patient: Has the following medical conditions: Hysterectomy Patient maximum height was 64.5 Menopause Age: 32 No regular weight bearing exercise Drinks caffeinated beverages Onset of menses at age 13 Number of children 2 Impression: The patient has normal bone mass. No significant bone loss was observed. Discussion: BONE DENSITY IS ABOVE THE MINIMUM DESIRABLE LEVEL AT ALL SKELETAL SITES TESTED. This patient?s bone mineral density is above the minimum desirable level (T-score -1.0 or better) at all sites measured. The patient should follow a healthful lifestyle (good nutrition with adequate calcium and vitamin D, and appropriate weight-bearing exercise). Follow-Up: Consider repeating this study in 5 years or sooner if there is some new clinical indication. Reported by: TASHA on 04/03/2025 3:41:00 PM. Reviewed, dictated and finalized at location A.
== END 2025-04-03 15:12 | disposition home or self-care (01) ==
LOC: MICIMG 15:12
PROVIDERS: PCP Family Medicine; Visit Provider Family Medicine
DX: Z78.0 Asymptomatic menopausal state (principal)
CPT/HCPCS: 77080

== ENCOUNTER 2025-05-20 09:28 | Outpatient (CLI) | payer MEDICARE, SELFPAY ==
--- NOTE | ~2025-05-20 | XR_ITS ---
EXAMINATION: XR barium swallow DATE: 05/20/2025 10:10 INDICATION: Gastroesophageal reflux disease without esophagitis TECHNIQUE: The patient drank thick barium, gas-producing crystals, and thin barium. Fluoroscopic spot radiographs of the hypopharynx and esophagus were obtained. Fluoroscopy exposure time was 2.2 minutes. Total DAP was 15.945 mGycm ^2. COMPARISON: None. FINDINGS: The pharynx is symmetric and without evidence of mass lesion or mucosal irregularity. The esophagus is normal without mass or stricture. Mild presbyesophagus with weakening of the peristaltic waves with some pooling of contrast in the esophagus on one of the swallows. There is no hiatal hernia. There was no gastroesophageal reflux with provocative maneuvers. IMPRESSION: 1. Mild presbyesophagus. Otherwise normal barium swallow study. Reviewed, dictated and finalized at location A. RTAINMENT DANCER
--- OUTSIDE RECORDS SUMMARY | 2025-05-20 10:19 | XMS_ITS | Encounter Summary ---
Author Organization [facility] Address [facility] [place] [address] Care Team Providers Care Automatic Dispenser Mechanic Name Role Phone Umesh Meier MD Primary Care Provider [phone] Encounter Details Date Type Department Care Team (Late st Contact Info) Description 02/10/2020 Lab Requisition [facility] DermPath Lab [address] [facility] [place] [phone] Desiree Augustine MD [address] [facility] [address] [place] [address] Social History Tobacco Use Types Packs/Day Years Used Date Smoking Tobacco: Former Smokeless Tobacco: Former Quit: 10/24/2017 Alcohol Use Standard Drinks/Week Comments No 0 (1 standard drink = 0.6 oz pur e alcohol) Comments Unknown Sex and Gender Information Value Date Recorded Sex Assigned at Not on file 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 Gender Identity Not on file Sexual Orientation Not on file documented as of this encounter Plan of Treatment Not on file documented as of this encounter Procedures Procedure Name Priority Date/Time Associated Diagnosis Comments DERMATOPATHOLOGY Routine 02/09/2020 12:0 0 AM CDT documented in this encounter Results * DERMATOPATHOLOGY (02/09/2020 12:00 AM CDT) Case Report Dermatopathology Report Case: [id number] Authorizing Provider: Desiree Augustine MD Collected: 02/09/2020 12:00 AM Ordering Location: [facility] DermPath Lab Received: 02/10/2020 10:48 AM Pathologist: [...] specimen consists of a shave biopsy measuring 0r7b4fe. Jar 0. Specimen B: Received is one formalin filled container labeled with the patient's name and designated left arm. The specimen consists of a shave biopsy measuring 2b3i6lb, bisected. Jar 0. Specimen C: Received is one formalin filled container labeled with the patient's name and designated left back. The specimen consists of a shave biopsy measuring 8x7x3nb, bisected. Jar 0. Specimen D: Received is one formalin filled container labeled with the patient's name and designated left leg. The specimen consists of a shave biopsy measuring 3a6n2df, bisected. Jar 0. 0 5:13 PM CDT [...] characteristic determined by the Dermatopathology Laboratory at [facility], directed by Dr. Vikram Erwin. These tests need not be, and therefore are not, approved by the [place] Food and Drug Administration. The tests are used for clinical purposes. Billing Codes Specimen Charges Stain Charges 68117 81001 13913 62857 1 1 1 1 71009 94997 46442 81275 34420 98488 1 1 1 1 1 1 0 [...] PATHOLOGY/CYTOLOGY ORD ERABLES Final Result DERMATOPATHOLOGY LABORATORY [facility] - Department of Dermatology [facility]/[address] [phone] documented in this encounter Visit Diagnoses Not on filedocumented in this encounter Care Teams Automatic Dispenser Mechanic Relationship Specialty Start Date End Date Umesh Meier MD PCP - General 05/21/14 documented as of this encounter
--- OUTSIDE RECORDS SUMMARY | 2025-05-20 10:19 | XMS_ITS | Clinical Summary ---
Author Organization [facility] Address [address] [facility] [facility] [place] [address] Care Team Providers Care Agricultural Research Director Name Role Phone Umesh Meier MD Primary Care Provider [phone] Source Comments [facility],non-owned Affiliates and Associated Physician Practices is amultiple site organization consisting of ambulatory clinics and hospital sitesin [place], [place], [place] and [place]. This disclosure is being madepursuant to the Care Everywhere program and may not contain all information available regarding this patient. 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 Gender Identity Not on file Sexual Orientation [...] 08/21/2005 ZOSTER VACCINE (1 of 2) 08/21/2005 DEPRESSION SCREENING 06/18/2024 MEDICARE AWV CALENDAR YEAR 2024 COVID-19 VACCINE (1 - 2024-2 6 season) 2025 INFLUENZA VACCINE (#1) 2025 Respiratory Syncytial Virus (RSV) Vaccine Pt: [...] patient's age to complete this topic Insurance [facility] MANAGED MEDICARE ADV SELF PAY NO INSURANCE Member Subscriber Plan / Payer (Ef fective for All Dates) Name:MarlenaPadmini Member ID:Not on file Relation to Subscriber:Not on file Name:PADMINI LOPEZ Subscriber ID:Not on file Address: [address] [place] [id number] Payer ID:Not on file Group ID:Not on file Type:Self Pay Address: [facility] MANAGED MEDICARE ADV Care Teams Agricultural Research Director Relationship Specialty Start Date End Date Umesh Meier MD PCP - General 05/21/14
--- OUTSIDE RECORDS SUMMARY | 2025-05-20 10:19 | XMS_ITS | Encounter Summary ---
Author Organization [facility] Address [facility] [facility] [place] [address] Care Team Providers Care Leaf Sticker Name Role Phone Umesh Meier MD Primary Care Provider [phone] Encounter Details Date Type Department Care Team (Late st Contact Info) Description 11/17/2024 Lab Requisition [facility] - DermPath Lab [address] [facility], [facility] [place] [address] Desiree Augustine MD [address] 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 Gender Identity Not on file Sexual Orientation Not on file documented as of this encounter Plan of Treatment Not on file documented as of this encounter Procedures Procedure Name Priority Date/Time Associated Diagnosis Comments DERMATOPATHOLOGY Routine 11/17/2024 8:38 AM CDT documented in this encounter Results * DERMATOPATHOLOGY (11/17/2024 8:38 AM CDT) Case Report Dermatopathology Report Case: [id number] Authorizing Provider: Desiree Augustine MD Collected: 11/17/2024 08:38 AM Ordering Location: [facility] - Received: 11/17/2024 01:37 PM DermPath Lab Pathologist: Maya Mancini MD Specimen: Skin, left arm 3:50 PM CDT DERMATOPATHOLOGY LABORATORY Final Diagnosis Specimen A. SKIN, left arm: VACUOLAR INTERFACE DERMATITIS WITH SUPERFICIAL PERIVASCULAR LYMPHOCYTIC INFILTRATE WITH YEAST FORMS IN THE FOLLICULAR OSTIUM (L30.8) (see microscopic description and comment) 3:50 PM CDT DERMATOPATHOLOGY LABORATORY at 1550 CDT Clinical History Quitaque Papule R/O BCC 3:50 PM CDT DERMATOPATHOLOGY [...] characteristic determined by the Dermatopathology Laboratory at [facility], directed by Dr. Vikram Erwin. These tests need not be, and therefore are not, approved by the [place] Food and Drug Administration. The tests are used for clinical purposes. Billing Codes Specimen Charges Stain Charges 49202 1 [id number] 1 1 1 1 1 3:50 PM CDT DERMATOPATHOLOGY LABORATORY Embedded Images 3:50 PM CDT DERMATOPATHOLOGY LABORATORY Pathology/Cytolo gy TISSUE SPECIMEN FROM SKIN / Unknown 11/17/2024 8:38 AM CDT 11/17/2024 1:37 PM CDT Desiree Augustine MD LAB - PATHOLOGY/CYTOLOGY ORD ERABLES Final Result DERMATOPATHOLOGY LABORATORY [facility] - Department of Dermatology [facility] [address] [place] [address], [address] [phone] documented in this encounter Visit Diagnoses Not on filedocumented in this encounter Care Teams Leaf Sticker Relationship Specialty Start Date End Date Umesh Meier MD PCP - General 05/21/14 documented as of this encounter
--- OUTSIDE RECORDS SUMMARY | 2025-05-20 10:19 | XMS_ITS | Clinical Summary ---
Author Organization [facility] Address [address] [place] [address] Care Team Providers Care Carrier Blower Name Role Phone Umesh Meier MD Primary [...] Wellness Visit 08/21/2020 Dexa Scan (General) 08/21/2020 PHQ-2 (Physician [place]) 06/18/2024 COVID-19 Vaccine (1 - 2024-2 6 season) 2025 Influenza Adult (#1) 2025 RSV Immunization or 60+ Years (1 - 1-dose 75+ series) 08/21/2030 Hepatitis A Vaccines Aged Out No long er eligible based on patient's age to complete this topic Meningococcal B Vaccine Aged Out No l onger eligible based on patient's age to complete this topic Meningococcal Vaccine Aged Out No ely kendall eligible based on patient's age to complete this topic RSV Immunizations Under 20 Months Aged Out No longer eligible based on patient's age to complete this topic Insurance [facility] [place] [phone] Care Teams Carrier Blower Relationship Specialty Start Date End Date Umesh Meier MD [address] [place] [address] [address] [place] [address] PCP - General FAMILY PRACTICE 10/25/21
--- OUTSIDE RECORDS SUMMARY | 2025-05-20 10:19 | XMS_ITS | Clinical Summary ---
Author Organization [facility] Address [address] [place] [id number] Care Team Providers Care Fashion Show Director Name Role Phone Umesh Meier MD Primary Care Provider [phone] Allergies Active Allergy Reactions Criticality Noted Date [...] 1 tablet (5 mg total) by mouth early childhood education coordinator before breakfast 2 Active furosemide (LASIX) 20 [...] NEEDED FOR PAIN. 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 Gender Identity Not on file Sexual Orientation Not on file Last Filed Vital Signs Vital Sign Reading Time Taken Comments Blood Pressure 146/87 06/14/2023 12:14 PM DIRECTOR INDUSTRIAL MUSEUM Pulse 89 06/14/2023 12:14 PM DIRECTOR INDUST[employer] MUSEUM Temperature - - Respiratory Rate - - [...] 65+ 08/21/2020 Influenza Vaccine (#1) 2025 Insurance [facility] MEDICARE ADVANTAGE Member Subscriber Plan / Payer (Ef fective 2017-Present) Name:PADMINI LOPEZ Relation to Subscriber:Self Name:MarlenaPadmini Payer ID:[id number] (NAIC) Type:[facility] MEDICARE Address: [place] [id number] [facility] MEDICARE ADVANTAGE Care Teams Fashion Show Director Relationship Specialty Start Date End Date Umesh Meier MD [address] [address] PCP - General 10/17/17
== END 2025-05-20 09:29 | disposition home or self-care (01) ==
PROVIDERS: PCP Family Medicine; Visit Provider Otolaryngology Otolaryngology/Facial Plastic Surgery
DX: K21.9 Gastro-esophageal reflux disease without esophagitis (principal); R13.12 Dysphagia, oropharyngeal phase
CPT/HCPCS: 74220